=== PATIENT | female | born 1975 | race Caucasian/White ===

== ENCOUNTER 2020-02-28 16:00 | Outpatient (CLI) | payer BC, SELFPAY ==
[2020-02-28 16:14] LABS: Basophils Absolute Auto 0.1 K/mm3 (0.0-0.1); Basophils Percent Auto 0.8 % (0.2-1.2); Hematocrit 38.2 % (37.0-47.0); Hemoglobin 12.2 g/dL (12.0-15.0); Immature Granulocyte Absolute 0.03 K/mm3 (0.00-0.031); Immature Granulocyte Percent A 0.3 % (0-0.5); Lymphocytes Absolute Auto 2.55 K/mm3 (0.9-3.2); Lymphocytes Percent Auto 26.8 % (18.3-44.2); Mean Corpuscular HGB Conc 31.9 g/dl (32-36); Mean Corpuscular Volume 93.9 fl (80-100); Mean Platelet Volume 9.3 fl (7.4-10.4); Monocytes Absolute Auto 0.6 K/mm3 (0.1-0.6); Monocytes Percent Auto 6.5 % (2.6-8.5); Neutrophils Absolute Auto 6.2 K/mm3 (1.3-6.7); Neutrophils Percent Auto 65.6 % (45.5-73.1); Platelet Count Result 481 k/mm3 (150-375); Red Blood Count 4.07 M/mm3 (4.2-5.4); Red Cell Distribution Width 15.1 % (11.5-14.5); White Blood Count 9.5 K/mm3 (4.5-10.0)
[2020-02-28 16:49] LABS: Alanine Aminotransferase 23 U/L (4-35); Albumin Level 4.4 g/dL (3.5-5.1); Alkaline Phosphatase 140 U/L (38-126); Aspartate Amino Transferase 42 U/L (14-36); Bilirubin,Total 0.3 mg/dL (0.2-1.3); Blood Urea Nitrogen 5 mg/dL (7-17); CRP 1.5 mg/dL (<1.0); Calcium 9.4 mg/dL (8.4-10.2); Carbon Dioxide 32 mmol/L (22-30); Chloride 95 mmol/L (98-107); Estimated Glomerular Filt Rate > 60; Glucose 94 mg/dL (65-105); Potassium 2.9 mmol/L (3.4-5.0); Sodium 137 mmol/L (137-145)
[2020-02-28 17:05] LABS: Erythrocyte Sedimentation Rate 24 mm/hr (0-20)
== END 2020-02-28 16:01 | disposition home or self-care (01) ==
PROVIDERS: PCP Family Medicine; Referring Provider Family Medicine; Visit Provider Internal Medicine Hematology & Oncology
DX: R79.89 Other specified abnormal findings of blood chemistry (principal)
CPT/HCPCS: 36415; 80053; 85025; 85652; 86140

== ENCOUNTER 2020-06-26 14:19 | Outpatient (CLI) | payer BC, SELFPAY ==
[2020-06-26 14:32] LABS: Basophils Absolute Auto 0.1 K/mm3 (0.0-0.1); Basophils Percent Auto 0.6 % (0.2-1.2); Eosinophils Absolute Auto 0.2 K/mm3 (0-0.3); Eosinophils Percent Auto 2.8 % (0-4.4); Hematocrit 36.3 % (37.0-47.0); Hemoglobin 11.5 g/dL (12.0-15.0); Immature Granulocyte Absolute 0.04 K/mm3 (0.00-0.031); Immature Granulocyte Percent A 0.5 % (0-0.5); Lymphocytes Absolute Auto 2.07 K/mm3 (0.9-3.2); Lymphocytes Percent Auto 26.8 % (18.3-44.2); Mean Corpuscular HGB Conc 31.7 g/dl (32-36); Mean Corpuscular Hemoglobin 28.8 pg (26-34); Mean Platelet Volume 9.1 fl (7.4-10.4); Monocytes Absolute Auto 0.5 K/mm3 (0.1-0.6); Monocytes Percent Auto 6.1 % (2.6-8.5); Neutrophils Absolute Auto 4.9 K/mm3 (1.3-6.7); Neutrophils Percent Auto 63.2 % (45.5-73.1); Platelet Count Result 372 k/mm3 (150-375); Red Blood Count 3.99 M/mm3 (4.2-5.4); Red Cell Distribution Width 15.5 % (11.5-14.5); White Blood Count 7.7 K/mm3 (4.5-10.0)
[2020-06-26 14:36] LABS: Blood Urea Nitrogen 6 mg/dL (8-26); Carbon Dioxide 25 mmol/L (22-30); Chloride 95 mmol/L (98-109); Estimated Glomerular Filt Rate > 60; Glucose 129 mg/dL (70-105); Sodium 137 mmol/L (138-146)
[2020-06-26 14:38] LABS: Potassium 2.5 mmol/L (3.5-4.9)
== END 2020-06-26 14:20 | disposition home or self-care (01) ==
LOC: ANHLAB 14:21
PROVIDERS: PCP Family Medicine; Visit Provider Internal Medicine Hematology & Oncology
DX: R79.89 Other specified abnormal findings of blood chemistry (principal)
CPT/HCPCS: 36415; 80048; 85025

== ENCOUNTER → 2021-10-21 14:58 | Outpatient (CLI) | payer BC, SELFPAY ==
--- NOTE | ~2021-10-21 | MM_ITS ---
EXAMINATION: MM screening tessie BI w juanis HISTORY: Screening TECHNIQUE: Craniocaudal and mediolateral oblique 3-D tomosynthesis images were obtained and synthetic 2-D images were generated. CAD analysis was submitted and interpreted. COMPARISON: No prior mammogram is available for comparison at this institution. BREAST PARENCHYMAL COMPOSITION: The breasts are heterogeneously dense, which may obscure small masses . FINDINGS: There is no evidence of suspicious mass, calcification, or architectural distortion to sugg est malignancy in either breast. There has been no suspicious interval change. IMPRESSION: 1. No mammographic evidence of malignancy. 2. Recommend routine screening mammography in one year. BI-RADS Category 1: Negative Reviewed, dictated and finalized at location A. [employer]
== END ==
PROVIDERS: PCP Family Medicine; Visit Provider Obstetrics & Gynecology
DX: Z12.31 Encounter for screening mammogram for malignant neoplasm of breast (principal)
CPT/HCPCS: 77063; 77067

== ENCOUNTER 2024-05-14 16:21 | Emergency (ER) | payer BC, SELFPAY ==
[2024-05-14 16:39] VITALS: BP 155/85; PULSE 65; RESP 16; TEMP 36.3; O2SAT 100
--- NOTE | 2024-05-14 16:55 | ED.UPPEXIN ---
HPI - Extremity Injury (Upper) General Chief Complaint: Extremity Injury, Upper Stated Complaint: Elbow Pain Time Seen by Provider: 05/14/24 16:56 Source: patient Mode of arrival: ambulatory Limitations: no limitations History of Present Illness HPI narrative: 48-year-old female presented for complaint of bruising to the right elbow. She first noticed the bruising last night. She denies known injury. She denies pain, swelling, deformity, numbness tingling or weakness of the extremity. Related Data Home Medications Medication Instructions Recorded Confirmed Adult Low Dose Aspirin 81 tab-cap PO DAILY 05/14/24 05/14/24 atenolol 50 mg-chlorthalidone 25 1 tablet PO DAILY 05/14/24 05/14/24 mg tablet atorvastatin 40 mg tablet 40 mg PO DAILY 05/14/24 05/14/24 cyanocobalamin (vitamin B-12) 1,000 mcg PO DIRECTED 05/14/24 05/14/24 1,000 mcg tablet fluoxetine 40 mg capsule 40 mg PO DAILY 05/14/24 05/14/24 Allergies Allergy/AdvReac Type Severity Reaction Status Date / Time metronidazole [From Flagyl] AdvReac Intermediate Nausea Verified 05/14/24 16:49 Review of Systems Review of Systems: CONSTITUTIONAL: Denies body aches, fever, chills CARDIOVASCULAR: Denies chest pain, palpitations, or edema. RESPIRATORY: Denies cough or dyspnea. SKIN: Denies rash, itching, or wounds. MUSCULOSKELETAL: reports elbow pain NEUROLOGIC: Denies numbness, tingling, or weakness. All systems reviewed & are unremarkable except as noted in HPI and below PMFSH Past Medical History Medical History Depression High cholesterol History of hemorrhoids Hypertension Low blood potassium Low iron Family History Family History Mother Heart disease Hypertension Breast cancer Father Heart disease Hypertension Breast cancer Grandparent Colon cancer Social History Social History Smoking status: Current some day smoker (vapes, marijuana) Tobacco type: e-cigarettes/vaping Alcohol intake: current Alcohol use details: 3-4 nightly Substance use: current Substance use type: marijuana Living arrangements: with family Occupation/Education: unemployed Comments At time of signature, I have reviewed and agree with nursing past medical, surgical, social and family history unless otherwise noted. Please see nursing chart for further information. There is no relevant family history pertinent to the presenting complaint Exam Narrative: GENERAL: Well-appearing CHEST: Speaks in full sentences. No respiratory distress. HEART: Regular rate and rhythm. Normal and equal peripheral pulses. EXTREMITIES: RUE has normal strength and sensation, normal range of motion of right elbow, denies pain with movement. No swelling. Brown colored ecchymosis surrounding right elbow appears healing, no point tenderness. No open wounds or obvious deformity; alignment normal, pulse palpable and equal bilaterally, skin warm, dry, pink. Capillary refill less than 3 seconds. SKIN: Warm, dry NEURO: Alert and oriented x3. PSYCH: Normal mood and affect Course Course Emergency Course: Patient is aware of diagnosis, understands and agrees to treatment plan. Anticipatory guidance given. Patient agrees to follow-up as directed and is aware of reasons to seek care at the emergency department. Portions of this record may have been created with voice recognition software Level of Care: Express Care Visit Vital Signs Vital signs: Vital Signs Temperature 97.4 F L 05/14/24 16:39 Pulse Rate 65 05/14/24 16:39 Respiratory Rate 16 05/14/24 16:39 Blood Pressure 155/85 H 05/14/24 16:39 Pulse Oximetry 100 05/14/24 16:39 Oxygen Delivery Room Air 05/14/24 16:39 Temperature 97.4 F L 05/14/24 16:39 Pulse Rate 65 05/14/24 16:39 Respiratory Rate
== END 2024-05-14 17:05 | disposition home or self-care (01) ==
PROVIDERS: Emergency Provider Nurse Practitioner Family
DX: S50.01XA Contusion of right elbow, initial encounter (principal); X58.XXXA Exposure to other specified factors, initial encounter; E78.00 Pure hypercholesterolemia, unspecified; I10 Essential (primary) hypertension; F32.A Depression, unspecified
CPT/HCPCS: 99212; G0463

== ENCOUNTER 2024-12-13 01:42 | Day surgery (SDC) | payer BC, SELFPAY ==
[2024-12-04 11:25] VITALS: BMI 27.3
--- OUTSIDE RECORDS SUMMARY | 2024-12-13 01:45 | XMS_ITS | Data Portability ---
Author Organization [facility], [facility].C[facility]anna, [facility] Address [address] [place] [address] [place] [address] Assessment Encounter Date Assessment Date Assessment LastModified by Organization Details LastModified Time 03/02/2021 03/02/2021 Annual gynecological exam performed. Patient will come back in a year unless there are new symptoms. Not available 03/02/2021 16:13:54 03/28/2023 03/28/2023 Annual gynecological exam performed. Patient will come back in a year unless there are new symptoms. [email or web address] Not available 03/28/2023 15:31:23 09/03/2024 09/03/2024 Annual gynecological exam performed. Patient will come back in a year unless there are new symptoms. [email or web address] Not available 08/22/2024 09:50:34 Plan of Treatment Reminders Order Date Submit Date Provider Last Modified By Organization Details Last Modified Time Details Appointments None recorded . Lab None recorded . Referral None recorded . Procedures colonosc opy screenin g (PROC) 2023 024 [facility], [address], [address], [place], [address], 4 11:09:10 Surgeries None recorded . Imaging MAMMO, screenin g, digital, bilatera l 2022 023 [email or web address] [facility], [address], [place], [address], 3 16:14:00 MAMMO, screenin g, digital, bilatera l 2023 024 [facility], [address], [address] [address], [place], [address], 4 04:03:44 Medication Orders None recorded . Patient TargetsNo targets recorded. Patient InstructionsNo instructions recorded. Reason for Referral None Reported. Results Created Date Observation Date Name Description Value Unit Range Abnormal Flag Note LastModifiedBy Organization Detail LastModifiedTime 03/02/2003/02/2021 pap, IG Pap test SEE RESULT S BELOW CASE REPOR T: Cytol ogy Gynec ologi neel Repor t Case: [id number] Autho mellisa salter Provi troy: Soraida Yancey MD Colle cted: 03/02 1727 Order ing Locat ion: [place] [facility] Recei julio: 03/03 1020 First Scree n: Nael Johnson, CT Speci men: Scree josep Pap - Image d, Cervi x STATE MENT OF ADEQU ACY: Satis facto ry for evalu ation Trans forma tion zone compo nent prese nt FINAL DIAGN OSIS: Negat malena for Intra epith elial Lesio n or Darrion marroquin (NIL) Shift in aníbal sugge stive of bacte rial vagin osis Elect anuja sharma jessica d by Nael Johnson, CT on 2020 at 5:07 PM ----- ----- ----- ----- ----- ----- ----- ----- ----- ----- ----- ----- ----- ----- ----- ----- ----- ---- HPV RESUL TS: HPV mRNA E6/E7 : No HPV mRNA Detec fer NOTE: This high risk HPV mRNA assay detec ts fourt een high- risk HPV types (16, 18, 31, 33, 35, 39, 45, 51, 52, 56, 58, 59, 66, 68) witho ut diffe renti ation . CHART ABLE COMME NT: Note: This speci men was revie wed by a Cytot echno logis t and/o r Patho logis t (as indic ated in this repor t) after evalu ation using the Thinp rep Imagi ng Syste m. CLINI NEEL INFOR MATIO N: Menst rual Statu s: LMP (if appli cable ): Clini neel Histo ry/Pr eviou s Pap: Type of Neopl arnie (if appli cable ): Other Histo ry: Hormo johnnie (if appli cable ): PAP EDUCA NEEL L NOTE: The Pap Test is a scree josep test with an inher ent false negat malena rate. Liqui d-bas e sampl ing may decre ase, but will not elimi george, false negat malena resul ts. A negat malena resul t does not precl ude the prese nce and/o r devel opmen t of disea se, since the prese nce of abnor mal cells in the sampl e depen ds on the locat ion of the lesio n and sampl ing techn ique. Rosetta nued regul ar scree josep is the best metho d of cance r preve ntion . If repor fer cytol ogic findi ng do not corre late with physi neel and/o r histo rical findi ngs, furth er inves tigat ion is recom chelsie d, as clini maritza alanis nted. Not Available [facility] (Lab) [address] [facility], [place], [address], 03/03/2021 19:35:31 03/28/20 23 03/28/2023 IMAGE GUIDE D PAP AND HPV REGAR DLESS image guided Pap, HPV regardless of Pap result SEE RESULT S BELOW CASE REPOR T: Cytol ogy Gynec ologi neel Repor t Case: [id number] Autho mellisa salter Provi troy: Anai Murphy, COORDINATOR OF PLACEMENT Colle cted: 03/28 1612 Order ing Locat ion: [place] [facility] [place] Recei julio: 03/29 0131 First Scree n: Kotz, Taylor h, CT Speci men: Scree josep Pap - Image d, Cervi x STATE MENT OF ADEQU ACY: Satis facto ry for evalu ation Trans forma tion zone compo nent prese nt FINAL DIAGN OSIS: Negat malena for Intra epith elial Lesio n or Darrion marroquin (NIL) . Shift in aníbal sugge stive of bacte rial vagin osis. Elect anuja sharma jessica d by Taylor Jiménez, CT on 2022 at 12:23 PM ----- ----- ----- ----- ----- ----- ----- ----- ----- ----- ----- ----- ----- ----- ----- ----- ----- ---- HPV RESUL TS: HPV mRNA E6/E7 : No HPV mRNA Detec fer NOTE: This high risk HPV mRNA assay detec ts fourt een high- risk HPV types (16, 18, 31, 33, 35, 39, 45, 51, 52, 56, 58, 59, 66, 68) witho ut diffe renti ation . COMME NT: This speci men was revie wed by a Cytot echno logis t and/o r Patho logis t (as indic ated in this repor t) after evalu ation using the Thinp rep Imagi ng Syste m. CLINI NEEL INFOR MATIO N: Menst rual Statu s: LMP (if appli cable ): Clini neel Histo ry/Pr eviou s Pap: Type of Neopl arnie (if appli cable ): Signi fican t Clini neel Findi ngs: Other Histo ry: Hormo johnnie (if appli cable ): PAP EDUCA NEEL L NOTE: The Pap Test is a scree josep test with an inher ent false negat malena rate. Liqui d-bas ed sampl ing may decre ase, but will not elimi george, false negat malena resul ts. A negat malena resul t does not precl ude the prese nce and/o r devel opmen t of disea se, since the prese nce of abnor mal cells in the sampl e depen ds on the locat ion of the lesio n and sampl ing techn ique. Rosetta nued regul ar scree josep is the best metho d of cance r preve ntion . If repor fer cytol ogic findi ng do not corre late with physi neel and/o r histo rical findi ngs, furth er inves tigat ion is recom chelsie d, as clini maritza warra nted. Not Available [facility] (Lab) [address], [place], [address], 03/29/2023 13:36:42 10/21/20 21 10/21/2021 MAMMO , scree josep, bilat eral No observ ation record ed. [facility] [address], [place], [address], 10/22/2021 09:43:55 Result Notes None recorded. 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 1 16:15:12 Speciali zed medical examinat ion Completed 201403/02/2021 Gynecolo gical Examinat ion;Everett rded Elsewher e: No Locat ion: [facility] S ource: [employer] Man veronica: N Practi ce ID: [id number] Dawson lable Time: 12:15:00 PM Caryl [facility] 1 16:15:20 Screenin g for malignan t neoplasm of cervix Completed 201403/02/2021 Pap Smear;Pr actice ID: 0001 [facility] 16:15:15 Problem Notes None recorded. Procedures Surgical History Date Name Laterality Status Provider Name and Address Organization Details Recorded Time 03/28/20 23 Date of Last Pap Smear completed [facility] 08/22/2024 09:52:33 10/21/20 21 Date of Last Mammogram completed [facility] 08/22/2024 09:53:58 04/14/20 20 hemorrhoidectomy completed [facility] 03/02/2021 16:20:18 Imaging Results Imaging Date Name Status LastModified by Organiz ation Details LastModified Time 10/21/2021 MAMMO, screening, bilateral completed [facility] [address], [place], [address], 10/22/2021 09:43:55 Procedure Notes None recorded. Medical Equipment None Reported. Allergies No known drug allergies Medications Name Sig Start Date Stop Date Status Note LastModified by Organization Details LastModified Time azithromy jorge luis 250 mg tablet take 4 tablet by oral route 08/22 completed Prescrib ed Elsewher e: No Locat ion: Natali tim [facility] odify By: [email or web address] Encounte r DateTime : 08/18/20 17 02:00:00 PM Not Available Not Available Not Available atenolol 25 mg tablet take 1 tablet by oral route every day active Prescrib ed Elsewher e: Yes Loca tion: Natali tim [facility] odify By: lewis Encounte r DateTime : 12/03/19 15 12:15:00 PM Not Available Not Available Not Available ranitidin e 75 mg tablet take 1 tablet by oral route 2 times every day with a glass of water 03/02 completed Prescrib ed Elsewher e: Yes Loca tion: Natali tim [facility] odify By: lewis Encounte r DateTime : 12/03/19 15 12:15:00 PM Not Available Not Available Not Available Flagyl 500 mg tablet take 1 tablet by oral route twice daily for 7 days. 08/18 completed Prescrib ed Elsewher e: No Locat ion: Natali tim [facility] odify By: [email or web address] Blackburn ter DateTime : 12/09/19 15 11:43:00 AM Not Available Not Available Not Available Aspirin Childrens 81 mg chewable tablet chew 1 tablet by oral route every day 03/02 completed Prescrib ed Elsewher e: Yes Loca tion: Natali tim [facility] odify By: lewis Blackburnte r DateTime : 12/03/19 15 12:15:00 PM Not Available Not Available Not Available ceftriaxo ne 500 mg solution for injection inject (250MG) by intramus cular route as a single dose 03/02 completed Prescrib ed Elsewher e: No Locat ion: Natali tim [facility] odify By: randa irwin DateTime : 08/23/20 17 08:36:12 AM Not Available Not Available Not Available Prozac 10 mg capsule take 2 capsule by oral route every day active Prescrib ed Elsewher e: Yes [facility] By: lewis alston DateTime : 12/03/19 15 12:15:00 PM Not Available Not Available Not Available Vitamin D2 1,250 mcg (50,000 unit) capsule take 1 capsule by oral route every week 03/02 completed Prescrib ed Elsewher e: No Locat ion: [facility] odify By: florentin singleton DateTime : 08/26/20 04:10:26 PM Not Available Not Available Not Available azithromy jorge luis 500 mg tablet take 2 tablet by oral route once 03/02 completed Prescrib ed Elsewher e: No Locat ion: [facility] odify By: randa irwin DateTime : 08/22/20 04:54:58 PM Not Available Not Available Not Available vitamin B complex active Not Available Not Available Not Available diazepam 03/28 completed Not Available Not Available Not Available Vitamin D active Not Available Not Karen ilable Not Available Wellbutri n active Not Available Not Available Not Available aspirin 81 mg capsule Take 1 capsule every day by oral route. active Not Available Not Available No t Available Vitals Date Recorded Body height Body mass index (BMI) Body weight Systolic blood pressure Diastolic blood pressure Provider Name and Address Organization Details Last Updated DateTime 03/02/2021 154.94 cm 27.8 kg/m2 74712.08 g 110 mm[Hg] 71 mm[Hg] Caryl Bautista [facility] 1 16:28:25 Date Recorded Body height Body mass index (BMI) Body weight Systolic blood pressure Diastolic blood pressure Provider Name and Address Organization Details Last Updated DateTime 03/28/2023 154.94 cm 26.5 kg/m2 02128.37 g 121 mm[Hg] 75 mm[Hg] Emily Lange [facility] 3 15:31:43 Date Recorded Body height Body mass index (BMI) Body weight Systolic blood pressure Diastolic blood pressure Provider Name and Address Organization Details Last Updated DateTime 09/03/2024 154.94 cm 9.1 kg/m2 12689.43 g 130 mm[Hg] 76 mm[Hg] Silva Blanco [facility] 15:14:35 Social History Question Answer Notes LastModified by Organizat ion Details LastModified Time Tobacco Smoking Status Never Smoker Caryl Bautista kiko [facility] 03/02/2021 16:18:17 What Is Your Level Of Alcohol Consumption? Moderate Information not available 03/02/2021 Are You Blind Or Do You Have Difficulty Seeing? No Information not available 03/28/2023 Are You Deaf Or Do You Have Serious Difficulty Hearing? No Information not available 03/28/2023 Which Illicit Or Recreational Drugs Have You Used? Marijuana Information not available 03/02/2021 Do You Use Any Illicit Or Recreational Drugs? Yes Information not available 03/02/2021 Sex: Unknown Functional Status Question Answer Note LastModified by Organizat ion Details LastModified Time Do you have difficulty walking or climbing stairs? No Information not available 03/28/2023 Are you able to walk? YESWOREST Information not available 03/28/2023 Are you able to care for yourself? Yes Information not available 03/28/2023 Do you have difficulty dressing or bathing? No Information not available 03/28/2023 Mental Status None recorded. Family History Relationship Description Onset Age of this Age Resolved Age Notes LastModified by Organization Details LastModified Time Mother Hypertensive disorder Not available 2020 16:16:43 Father Malignant tumor of breast Not available 2020 16:16:59 Father Hypertensive disorder Not available 2020 16:17:07 Father Malignant tumor of lung Not available 2020 16:17:20 Maternal Grandfather Malignant tumor of colon Not available 2020 16:17:38 Medical History Condition Response Allergies (Food, seasonal, environmental ) N Other N Drug/Latex Allergies/Reactions N Blood Transfusion N Breast Cancer N Dermatologic Disorders N Lung Disease N Defects or Inherited Disease N Breast Problem N Gestational Diabetes N Hematologic disorders N Anesthesia Complications N History of STI N Deep Vein Thrombosis N Polycystic ovary syndrome N Anxiety Disorder N Autoimmune disease N Arthritis N Polyps N Infertility N Acid Reflux (GERD) N History of abnormal pap N Cancer N Varicosities N Stroke N Neurologic/Epilepsy N Endometriosis N High Cholesterol N Fibromyalgia N Headaches N Kidney Disease N Heart Problems N Thyroid Problems N Kidney or Bladder Problems N GI Problems N Eating Disorder N Anemia N Art (IVF or FET) N Psychiatric Illness N Ovarian Cancer N Diabetes N Pulmonary (TB, Asthma) N Hepatitis/Liver Disease N No Past Medical History N Eczema N Urinary Tract Infection N Abuse/Domestic Violence N Asthma N Trauma/Violence N Depression/ depression Y Heart Disease N Pre-Eclampsia N Hypertension Y Osteoporosis N Thrombophilias N Gynecological History Statement/Question Response Abnormal Pap N Flow Light Date of Last Mammogram 10/21/2021 Date of LMP 08/24/2024 Was last menstrual period normal Y STIs/STDs Y HPV Vaccine N Duration of Flow (days) 4 12 Current Control Method Partner Vas ectomy Are cycles usually normal Y Date of Last Colonoscopy Sexually Active? Y Menses Monthly Y Age of first menstrual cycle 13 Date of Last Pap Smear 03/28/2023 Sexual Problems? N LMP Definite Obstetrics History GPAL:G 2 P 0 0 2 0 Type Value Induced 2 Living 0 Total 2 Past Encounters Encounter ID Performer Location Encounter Start Date Encounter Closed Date Diagnosis/Indication Diagnosis SNOMED-CT Code Diagnosis ICD10 Code Diagnosis Note [id number] Kade Yancey MD [facility] [address] [address] 03/02/2021 16:02:34 03/02/2021 17:09:39 Gynecologic examination 21858036 Z01.419 This patient is here for her annual exam. A thorough history was taken. A physical exam was performed. Age appropriat e routine health screening was ordered, performed, and discussed. Recommende d testing was ordered. She was asked to follow up in one year. She will be informed of any test results. Mammogram - [ ordered] Cholestero l - [ done ] Pap - today [id number] ZAYRA Youngblood [facility] [address] [address] 03/28/2023 15:20:17 03/28/2023 16:47:07 Screening for malignant neoplasm of breast 779880546 Z12.39 Gynecologi c examination 74018048 Z01.419 Suggested Calcium with Vitamin D 1200-1500m g daily. Patient advised to get an annual flu shot in the fall and she could obtain at [facility] or [facility]. Also to obtain TDap vaccinatio n if you have not had one in the last 10 years. Recommend yearly mammograms . Encouraged monthly self breast exams. Encourage safe sexual practices, to use condoms and limit partners if not already in a monogamous relationsh ip. Engage in daily exercise of low impact aerobic exercise 45-60 minutes 4-5 times weekly. Avoid tobacco and illicit drugs as well as using moderation with alcohol intake less than 1-2 8 oz beverages daily. This lifestyle behavior pattern will lead to less health conditions and longer life span. If BMI greater than 25 weight watchers or dietary consult advised. All questions have been answered. Patient appears to understand informatio n, but if you have any questions please call or respond to this email. WWEBC - partner with vasectomyn o hx of abnormal papspap done todaySTI testing declinedfa ther with BC at age 72, mother with BC at age 80. Genetic testing discussedm ammogram order givengrand father with colon CA, unsure age. Colon CA screening discussed and recommende d, declinedUT D with PCPRTC in 1 year or sooner if needed [id number] [facility] [address] [address] 09/03/2024 15:08:36 09/03/2024 16:12:51 Screening mammography [id number] Z12.31 Patient to schedule annual mammogram - order given. Gynecologi c examination 74228646 Z01.419 Annual gynecologi neel exam performed. Patient will come back in a year unless there are new symptoms. Suggest Calcium with Vitamin D if not eating in diet. Patient advised to get annual flu shot. Recommend yearly physicals and perform monthly breast exams. Genetic testing is available for patients with family history of cancer. Engage in safe sexual practices, use condoms. Encouraged to have daily exercise. Avoid tobacco and illicit drugs, moderation of alcohol. If BMI greater than 25 dietary consult advised. If you have any questions please call or email. mammogram- DUE - order given colon cancer screening - DUE - GI referral to [facility] (family hx of colon cancer - Paternal GF) DEXA scan- n/a Pap smear- UTD (2022 - WNL, will repeat in 2025 per ASCCP guidelines ) laboratory evaluation - PCP STI testing - declined Screening colonoscopy 44 1327503 Z12.11 Health Concerns Section Related Observation LastModified by Organization Detai ls LastModified Time None Recorded Concern Status LastModified by Organization Details LastModified Time None Recorded Advance Directives Directive None Recorded Payers Encounter Date Sequence Insurance Name Policy Number Policy Gaitan Covered Member ID Gaitan Member ID Guarantor Name 03/02/2021 1 [place] [id number] Omega Babin [id number] Diamond Babin 03/28/2023 1 [place] [id number] Omega Maryjanetim [id number] Diamond Babin 09/03/2024 1 [place] [id number] Omega Maryjanetim [id number] Diamond Babin Notes Date Note Type Note Provider Name and Address Organization Details Recorded Time 03/02/2021 text/html Annual GYNReport ed bypatient.History: no gynecologic complaints Menstrual cycle:Normal menses Urinary symptoms:No hematuria; No incontinence Vulva:No genital lesion Vagina:Normal vaginal discharge Breast:No breast pain; No breast lump; No nipple discharge Current Contraception:Sati sfied with current contraception; Partner had vasectomy Sexual complaints:No sexual complaints; No pain during intercourse; Normal libido Menopausal Symptoms:No menopausal symptoms; Normal vaginal lubrication Psychological symptoms:No depression; No anxiety Preventive measures:Encourage self breast examination; Encourage regular exercise Kade Yancey MD [address], [place], [address], [place] [facility] 03/02/2021 17:02:02 03/28/2023 text/html Annual GYNReport ed bypatient.Menstrua l cycle:Normal menses Urinary symptoms:No hematuria; No incontinence Vulva:No genital lesion Vagina:Normal vaginal discharge Breast:No breast pain; No breast lump; No nipple discharge Current Contraception:Sati sfied with current contraception; Partner had vasectomy Sexual complaints:No sexual complaints; No pain during intercourse; Normal libido Menopausal Symptoms:No menopausal symptoms; Normal vaginal lubrication Psychological symptoms:No depression; No anxiety; No PMDD Preventive measures:Encourage self breast examination; Encourage regular exercise; Encourage no tobacco use; Encourage regular mammograms starting age 40 ZAYRA Youngblood [address], [place], [address], [place] [facility] 03/28/2023 16:34:21 09/03/2024 text/html Annual GYNReport ed bypatient.History: no gynecologic complaints Menstrual cycle:Irregular cycle intervals(q1-2 months);Perimenopa usal Urinary symptoms:No hematuria; No incontinence Vulva:No genital lesion Vagina:Normal vaginal discharge Breast:No breast pain; No breast lump; No nipple discharge Current Contraception:Part ner had vasectomy Sexual complaints:No sexual complaints; No pain during intercourse; Normal libido Menopausal Symptoms:No menopausal symptoms; Normal vaginal lubrication Psychological symptoms:No depression; No anxiety; No PMDD Preventive measures:Encourage self breast examination; Encourage regular exercise; Encourage no tobacco use; Encourage regular mammograms starting age 40; Needs to schedule mammogram; Needs to schedule colonoscopy Patient presents for annual well woman exam. Patient denies concerns today. Patient reports irregular cycles with light flow. Pt reports mild hot flashes intermittently, not bothersome. Silva hoover, [facility] 09/03/2024 16:47:00 OBGyn Episode Ob Episode Information Episode Created Date Number of Fetuses Patient Bloodtype Patient rh Status Prepregnancy Weight lbs Domestic Partner Domestic Partner Phone Father Name Planning Engineer Status 03/02/20 21 1 CLOSED Fetus Data First Name Last Name Admitted to NICU Weight (g) Sex Living Outcome Pediatric Complications Fetus ID Race Codes Race Delivery Type , Induced [id number] Manpreet Calculation Initial Manpreet Date Initial Exam Date Initial Exam Provider Initial Ultrasound Date Last Menstrual Period Date Ultra Sound Weeks Gestation 0 Eighteen To Twenty Week Manpreet Update Ultra Sound Date Fundal Height At Umbil Quickening Date Ultra Sound Latest Weeks Gestation Final Manpreet Confirmed By Final Manpreet Confirmed Date Final Manpreet Date Ultra Sound Latest Days Gestation 0 0 Menstrual History Last Menstrual Date Menses Monthly On Bcp Conception Prior Menses Frequency Hcg Plus Date Menarche Onset Age Delivery Information Delivery Date Delivery Type Labor Anesthesia Weeks Gestation Incision Type Labor Labor Length Hrs Delivered By Post Complications Tubal Sterilization Discharge Date Comments Discharge Information Feeding Method Contraceptive Method Maternal HG B and HCT Levels Ob Episode Information Episode Created Date Number of Fetuses Patient Bloodtype Patient rh Status Prepregnancy Weight lbs Domestic Partner Domestic Partner Phone Father Name Planning Engineer Status 03/02/20 21 1 CLOSED Fetus Data First Name Last Name Admitted to NICU Weight (g) Sex Living Outcome Pediatric Complications Fetus ID Race Codes Race Delivery Type , Induced [id number] Manpreet Calculation Initial Manpreet Date Initial Exam Date Initial Exam Provider Initial Ultrasound Date Last Menstrual Period Date Ultra Sound Weeks Gestation 0 Eighteen To Twenty Week Manpreet Update Ultra Sound Date Fundal Height At Umbil Quickening Date Ultra Sound Latest Weeks Gestation Final Manpreet Confirmed By Final Manpreet Confirmed Date Final Manpreet Date Ultra Sound Latest Days Gestation 0 0 Menstrual History Last Menstrual Date Menses Monthly On Bcp Conception Prior Menses Frequency Hcg Plus Date Menarche Onset Age Delivery Information Delivery Date Delivery Type Labor Anesthesia Weeks Gestation Incision Type Labor Labor Length Hrs Delivered By Post Complications Tubal Sterilization Discharge Date Comments Discharge Information Feeding Method Contraceptive Method Maternal HG B and HCT Levels
--- OUTSIDE RECORDS SUMMARY | 2024-12-13 01:45 | XMS_ITS | Data Portability ---
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 Plan of Treatment Reminders Order Date Submit Date Provider Last Modified By Organization Details Last Modified Time Details Appointments None recorded. Lab CBC w/ auto diff 2022 023 [place] [facility], [address], [place], [address], 3 17:10:09 CMP, serum or plasma 2022 023 [place] [facility], [address], [place], [address], 3 17:10:08 TSH + free T4, serum 2022 023 [place] [facility], [address], [address], [place], [address], 3 12:12:30 lipid panel, serum 2022 023 [place] [facility], [address], [address], [place], [address], 3 17:10:08 HbA1c (hemoglobi n A1c), blood 2022 023 [place] [facility], [address], [address], [place], [address], 3 12:12:32 vitamin D, 25-hydroxy , total, serum 2022 023 KISHOR Guerra, [address], [address], [place], [address], 3 12:12:33 iron + total iron-james ng capacity (TIBC), serum 2022 023 [facility] Guerra, [address], [address], [place], [address], 3 12:12:31 vitamin B12 + folate, serum or blood 2022 023 KISH[facility] Guerra, [address], [address], [place], [address], 3 12:12:30 lipid panel, serum 2022 023 KISH[facility] Guerra, [address], [address], [place], [address], 3 16:09:29 CBC w/ auto diff 2022 023 K[facility] Guerra, [address], [address], [place], [address], 3 16:19:21 ferritin, serum or plasma 2022 023 KISHOR Guerra, [address], [address], [place], [address], 3 16:20:43 vitamin B12 + folate, serum or blood 2022 023 KISHOR Guerra, [address], [address], [place], [address], 3 16:11:15 CMP, serum or plasma 2022 023 K[facility] Guerra [address], [address], [place], [address], 3 16:11:15 CMP, serum or plasma 2022 023 [facility], [address], [address], [place], [address], 3 15:29:35 CBC w/ auto diff 2022 023 [facility], [address], [address], [place], [address], 3 15:29:33 lipid panel, serum 2022 023 [facility], [address], [address], [place], [address], 3 15:29:35 vitamin D, 25-hydroxy , total, serum 2022 023 [facility], [address], [address], [place], [address], 3 15:29:33 vitamin B12 + folate, serum or blood 2022 023 [facility], [address], [address], [place], [address], 3 15:37:51 iron + total iron-james ng capacity (TIBC), serum 2022 023 [facility], [address], [address], [place], [address], 3 15:29:34 ferritin, serum or plasma 2022 023 [facility], [address], [address], [place], [address], 3 15:29:33 CMP, serum or plasma 2023 024 [facility], [address], [address], [place], [address], 4 08:28:48 CBC w/ auto diff 2023 024 [facility] [address], [address], [place], [address], 4 08:28:51 lipid panel, serum 2023 024 [place] [facility], [address], [address], [place], [address], 4 08:28:47 TSH + free T4, serum 2023 024 [place] [facility], [address], [address], [place], [address], 4 08:28:47 HbA1c (hemoglobi n A1c), blood 2023 024 [facility], [address], [address], [place], [address], 4 08:28:50 vitamin D, 25-hydroxy , total, serum 2023 024 KISHOR Mccord, [address], [address], [place], [address], 4 08:28:51 vitamin B12 + folate, serum or blood 2023 024 K[facility] Mccord, [address], [address], [place], [address], 4 08:28:49 iron + total iron-james ng capacity (TIBC), serum 2023 024 KISH[facility] Mccord, [address], [address], [place], [address], 4 08:28:49 ferritin, serum or plasma 2023 024 [place] [facility], [address], [address], [place], [address], 4 08:28:50 Referral gastroente rologist referral - DO NOT REFER TO [facility] 2022 023 [place], [address], [address], [place], [address], 4 11:21:12 dermatolog ist referral 2023 024 [email or web address] Zeny Haro MD (Dermatology) , [address], [address], [place], [address], 4 08:06:03 gastroente rologist referral 2023 024 [facility], [address], [place], [address], 4 10:28:02 Procedures None recorded. Surgeries None recorded. Imaging MAMMO, screening, bilateral 2022 023 [facility], [address], [address], [place], [address], 3 16:28:18 Medication Orders fluoxetine 40 mg capsule 2022 023 [facility] #[id number], [address], [place], [address], 3 16:06:13 atenolol 50 mg-chlorth alidone 25 mg tablet 2022 023 [facility] #[id number], [address], [place], [address], 3 16:06:13 hydroxyzin e HCl 25 mg tablet 2022 023 [facility] #[id number], [address], [place], [address], 3 15:27:09 bupropion HCl XL 150 mg 24 hr tablet, extended release 2023 024 [email or web address] [facility] #[id number], [address], [place], [address], 4 09:16:43 metronidaz ole 1 % topical gel 2023 024 [facility] #[id number], [address], [place], [address], 4 14:06:22 Patient TargetsNo targets recorded. 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 for malignant neoplasm of colon DO NOT REFER TO [facility] Referring Physician: Evelyn Jha [facility], Encounter Date: 11/02/2023 Electromyographic Technician Referral for R osacea Referring Physician: Evelyn Jha [facility], Encounter Date: 03/15/2024 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 Referral for Screening for malignant neoplasm of colon Referring Physician: Evelyn Jha [facility] [employer] [facility] [employer] [facility], Encounter Date: 03/15/2024 Results Created Date Observation Date Name Description Value Unit Range Abnormal Flag Note LastModifiedBy Organization Detail LastModifiedTime 02/08/20 23 02/08/2023 TSH+F REE T4 TSH 1.820 uIU/m L 0.450- 4.500 Not Available [facility] ([facility]) [address], [place], [address], 02/08/2023 12:12:29 02/08/2002/08/2023 TSH+F REE T4 T4,free(dire ct) 0.94 NG/dL 0.82-1 .77 Not Available [facility] ([facility]) [address] [place], [address], 02/08/2023 12:12:29 02/08/2002/08/2023 VITAM IN B12 AND FOLAT E vitamin B12 181 pg/mL 232-12 45 below low normal Not Available [facility] ([facility]) [address] [place], [address], 02/08/2023 12:12:30 02/08/2002/08/2023 VITAM IN B12 AND FOLAT E folate (folic acid), serum 3.9 NG/mL >3.0 A serum folat e bubba ntrat ion of less than 3.1 ng/mL is consi dered to repre sent clini neel defic iency . Not Available [facility] ([facility]) [address] [facility], [place], [address], 02/08/2023 12:12:30 02/08/2002/08/2023 IRON AND TIBC iron bind.cap.(TI BC) 517 ug/dL 250-45 0 above high normal Not Available [facility] ([facility]) [address] [place], [address], 02/08/2023 12:12:31 02/08/20 23 02/08/2023 IRON AND TIBC UIBC 497 ug/dL 131-42 5 above high normal Not Available [facility] ([facility]) [address] [place], [address], 02/08/2023 12:12:31 02/08/20 23 02/08/2023 IRON AND TIBC iron 20 ug/dL 27-159 below low normal Not Available [facility] ([facility]) [address] [place], [address], 02/08/2023 12:12:31 02/08/20 23 02/08/2023 IRON AND TIBC iron saturation 4 % 15-55 alert low Not Available [facility] ([facility]) [address] [facility], [place], [address], 02/08/2023 12:12:31 02/08/20 23 02/08/2023 HEMOG LOBIN A1C hemoglobin A1C 5.6 % 4.8-5. 6 Predi abete s: 5.7 - 6.4 Diabe maia: >6.4 Glyce sherley contr ol for adult s with diabe maia: <7.0 Not Available [facility] ([facility]) [address] [facility], [place], [address], 02/08/2023 12:12:32 02/08/20 23 02/08/2023 VITAM IN D, 25-HY DROXY vitamin D, 25-hydroxy 19.4 NG/mL 30.0-1 00.0 below low normal Vitam in D defic iency has been defin ed by the Insti tute of Medic ine and an Endoc rine Socie ty pract ice guide line as a level of serum 25-OH vitam in D less than 20 ng/mL (1,2) . The Endoc rine Socie ty went on to furth er defin e vitam in D insuf ficie ncy as a level betwe en 21 and 29 ng/mL (2). 1. IOM (Inst itute of Medic ine). 2009. Dieta ry refer ence intak es for calci um and D. Rinku ramirez [place]: The Natio nal [facility] Press . 2. Hadley noyola MF, Denita ey [place], Vashti off-F errar i PERLA, et al. Evalu ation , treat ment, and preve ntion of vitam in D defic iency : an Endoc rine Socie ty clini neel pract ice guide line. JCEM. 2010; 96(7) :1911 -30. Not Available [facility] ([facility]) [address] [facility], [place], [address], 02/08/2023 12:12:32 02/08/20 23 02/08/2023 LIPID PANEL WITH LDL/H DL RATIO cholesterol, total 286.1 mg/dL 140.0- 200.0 above high normal Not Available [facility] [address] [place] [address], [address], 02/08/2023 17:10:08 02/08/20 23 02/08/2023 LIPID PANEL WITH LDL/H DL RATIO triglyceride s 175 mg/dL <=150 above high normal Not Available [facility] [address] [place], [address], 02/08/2023 17:10:08 02/08/20 23 02/08/2023 LIPID PANEL WITH LDL/H DL RATIO HDL cholesterol 53.1 mg/dL 40.0-[address] [facility] [address] [place] [address], [address], 02/08/2023 17:10:08 02/08/20 23 02/08/2023 LIPID PANEL WITH LDL/H DL RATIO VLDL cholesterol neel 35.00 mg/dL 5.00-[address] [facility] [address] [place] [address], [address], 02/08/2023 17:10:08 02/08/20 23 02/08/2023 LIPID PANEL WITH LDL/H DL RATIO LDL chol calc (nih) 200.1 Not Available [facility] [address] [place], [address], 02/08/2023 17:10:08 02/08/20 23 02/08/2023 LIPID PANEL WITH LDL/H DL RATIO LDL/HDL ratio 3.8 Not Available [facility] [address] [place], [address], 02/08/2023 17:10:08 02/08/20 23 02/08/2023 COMP. METAB OLIC PANEL (14) glucose 91 mg/dL 65-99 ANION GP 19.0 mmol/ L N OSMOL 273.0 mOsM/ L L REFER ENCE RANGE : 275.0 -301. [address] [facility] [address] [place] [address], [address], 02/08/2023 17:10:08 02/08/20 23 02/08/2023 COMP. METAB OLIC PANEL (14) BUN 6 mg/dL 8-26 below low normal Not Available [facility] [address] [place] [address], [address], 02/08/2023 17:10:08 02/08/20 23 02/08/2023 COMP. METAB OLIC PANEL (14) creatinine 0.45 mg/dL 0.50-1 .40 below low normal Not Available [facility] [address] [place] [address], [address], 02/08/2023 17:10:08 02/08/20 23 02/08/2023 COMP. METAB OLIC PANEL (14) eGFR 121 mL/mi n/1.7 3 >=[address] [facility] [address] [place] [address], [address], 02/08/2023 17:10:08 02/08/20 23 02/08/2023 COMP. METAB OLIC PANEL (14) BUN/creatini ne ratio 13.8 Not Available [facility] [address] [place] [address], [address], 02/08/2023 17:10:08 02/08/20 23 02/08/2023 COMP. METAB OLIC PANEL (14) sodium 138.0 mmol/ L 136.0- 144.[address] [facility] [address] [place] [address], [address], 02/08/2023 17:10:08 02/08/20 23 02/08/2023 COMP. METAB OLIC PANEL (14) potassium 3.2 mmol/ L 3.5-5. 3 below low normal Not Available [facility] [address] [place] [address], [place], [address], 02/08/2023 17:10:08 02/08/20 23 02/08/2023 COMP. METAB OLIC PANEL (14) chloride 95 mmol/ l 101-11 1 below low normal Not Available [facility] [address] [place], [address], 02/08/2023 17:10:08 02/08/20 23 02/08/2023 COMP. METAB OLIC PANEL (14) carbon dioxide, total 27.8 mmol/ L 21.0-[address] [facility] [address] [place], [address], 02/08/2023 17:10:08 02/08/20 23 02/08/2023 COMP. METAB OLIC PANEL (14) calcium 9.4 mg/dL 8.2-[address] [facility] [address] [place], [address], 02/08/2023 17:10:08 02/08/20 23 02/08/2023 COMP. METAB OLIC PANEL (14) protein, total 7.2 g/dL 6.7-8. [address] [facility] [address] [place], [address], 02/08/2023 17:10:08 02/08/20 23 02/08/2023 COMP. METAB OLIC PANEL (14) albumin 4.3 g/dL 3.5-5. [address] [facility] [address] [place], [address], 02/08/2023 17:10:08 02/08/20 23 02/08/2023 COMP. METAB OLIC PANEL (14) globulin, total 2.9 g/dL 1.5-4. [address] [facility] [address] [place], [address], 02/08/2023 17:10:08 02/08/20 23 02/08/2023 COMP. METAB OLIC PANEL (14) A/G ratio 1.5 Not Available [facility] [address] [place], [address], 02/08/2023 17:10:08 02/08/20 23 02/08/2023 COMP. METAB OLIC PANEL (14) bilirubin, total 0.2 mg/dL 0.0-1. [address] [facility] [address] [place] [address], [address], 02/08/2023 17:10:08 02/08/20 23 02/08/2023 COMP. METAB OLIC PANEL (14) alkaline phosphatase 123.9 IU/L 42.0-1 21.0 above high normal Not Available [facility] [address] [place] [address], [address], 02/08/2023 17:10:08 02/08/20 23 02/08/2023 COMP. METAB OLIC PANEL (14) AST (SGOT) 19.1 U/L 10.0-[address] [facility] [address] [place] [address], [address], 02/08/2023 17:10:08 02/08/20 23 02/08/2023 COMP. METAB OLIC PANEL (14) ALT (SGPT) 17.8 U/L 10.0-[address] [facility] [address] [place] [address], [address], 02/08/2023 17:10:08 02/08/20 23 02/08/2023 CBC WITH DIFFE RENTI AL/PL ATELE T WBC 9.1 K/uL 3.4-[address] [facility] [address] [place] [address], [address], 02/08/2023 17:10:09 02/08/20 23 02/08/2023 CBC WITH DIFFE RENTI AL/PL ATELE T RBC 3.7 M/uL 4.2-5. 4 below low normal Not Available [facility] [address] [place], [address], 02/08/2023 17:10:09 02/08/20 23 02/08/2023 CBC WITH DIFFE RENTI AL/PL ATELE T hemoglobin 9.0 g/dL 11.5-1 5.5 below low normal Not Available [facility] [address] [place], [address], 02/08/2023 17:10:09 02/08/20 23 02/08/2023 CBC WITH DIFFE RENTI AL/PL ATELE T hematocrit 31.1 % 36.0-4 8.0 below low normal Not Available [facility] [address] [place], [address], 02/08/2023 17:10:09 02/08/20 23 02/08/2023 CBC WITH DIFFE RENTI AL/PL ATELE T MCV 83 fL 80-[address] [facility] [address] [place], [address], 02/08/2023 17:10:09 02/08/20 23 02/08/2023 CBC WITH DIFFE RENTI AL/PL ATELE T MCH 24 pg 27-32 below low normal Not Available [facility] [address] [place], [address], 02/08/2023 17:10:09 02/08/20 23 02/08/2023 CBC WITH DIFFE RENTI AL/PL ATELE T MCHC 29 g/dL 32-36 below low normal Not Available [facility] [address] [place], [address], 02/08/2023 17:10:09 02/08/20 23 02/08/2023 CBC WITH DIFFE RENTI AL/PL ATELE T RDW 18.2 % 11.5-1 4.5 above high normal Not Available [facility] [address] [place], [address], 02/08/2023 17:10:09 02/08/20 23 02/08/2023 CBC WITH DIFFE RENTI AL/PL ATELE T platelets 406 K/uL 155-37 9 above high normal MPV 10.6 FL 8.9-[address] [facility] [address] [place], [address], 02/08/2023 17:10:09 02/08/20 23 02/08/2023 CBC WITH DIFFE RENTI AL/PL ATELE T neutrophils 60.2 % 40.0-[address] [facility] [address] [place], [address], 02/08/2023 17:10:09 02/08/20 23 02/08/2023 CBC WITH DIFFE RENTI AL/PL ATELE T lymphs 31.1 % 14.0-[address] [facility] [address] [place], [address], 02/08/2023 17:10:09 02/08/20 23 02/08/2023 CBC WITH DIFFE RENTI AL/PL ATELE T monocytes 6.7 % 4.0-[address] [facility] [address] [place], [address], 02/08/2023 17:10:09 02/08/20 23 02/08/2023 CBC WITH DIFFE RENTI AL/PL ATELE T eos 0 % 0-[address] [facility] [address] [place], [address], 02/08/2023 17:10:09 02/08/20 23 02/08/2023 CBC WITH DIFFE RENTI AL/PL ATELE T basos 1.2 % 0.0-1. 0 above high normal Not Available [facility] [address] [place], [address], 02/08/2023 17:10:09 02/08/20 23 02/08/2023 CBC WITH DIFFE RENTI AL/PL ATELE T neutrophils (absolute) 5.5 K/uL 1.4-7. [address] [facility] [address] [place], [address], 02/08/2023 17:10:09 02/08/20 23 02/08/2023 CBC WITH DIFFE RENTI AL/PL ATELE T lymphs (absolute) 2.8 K/uL 0.7-3. [address] [facility] [address] [place], [address], 02/08/2023 17:10:09 02/08/20 23 02/08/2023 CBC WITH DIFFE RENTI AL/PL ATELE T monocytes(ab solute) 0.6 K/uL 0.1-0. [address] [facility] [address] [place], [address], 02/08/2023 17:10:02/08/20 23 02/08/2023 CBC WITH DIFFE RENTI AL/PL ATELE T eos (absolute) 0.0 K/uL 0.0-0. [address] [facility] [address] [place], [address], 02/08/2023 17:10:09 02/08/20 23 02/08/2023 CBC WITH DIFFE RENTI AL/PL ATELE T baso (absolute) 0.1 K/uL 0.0-0. [address] [facility] [address] [place], [address], 02/08/2023 17:10:09 02/08/20 23 02/08/2023 CBC WITH DIFFE RENTI AL/PL ATELE T immature granulocytes 0.8 % Not Available [facility] [address] [place], [address], 02/08/2023 17:10:09 02/08/20 23 02/08/2023 CBC WITH DIFFE RENTI AL/PL ATELE T immature grans (abs) 0.1 K/uL Not Available [facility] Department [address] [place], [address], 02/08/2023 17:10:09 02/08/20 23 02/08/2023 CBC WITH DIFFE RENTI AL/PL ATELE T NRBC 0 % Not Available [facility] [address] [place], [address], 02/08/2023 17:10:09 05/26/20 23 05/27/2023 IRON AND TIBC iron bind.cap.(TI BC) 475 ug/dL 250-45 0 above high normal Not Available [facility] ([facility]) [address] [place], [address], 05/27/2023 08:28:46 05/26/20 23 05/27/2023 IRON AND TIBC UIBC 377 ug/dL 131-42 5 Not Available [facility] ([facility]) [address] [place], [address], 05/27/2023 08:28:46 05/26/20 23 05/27/2023 IRON AND TIBC iron 98 ug/dL 27-159 Not Available [facility] ([facility]) [address] [place], [address], 05/27/2023 08:28:46 05/26/20 23 05/27/2023 IRON AND TIBC iron saturation 21 % 15-55 Not Available [facility]) [address] [place], [address], 05/27/2023 08:28:46 03/15/20 24 03/16/2024 TSH+F REE T4 TSH 1.070 uIU/m L 0.450- 4.500 Not Available [facility] ([facility]) [address] [place], [address], 03/16/2024 08:28:47 03/15/20 24 03/16/2024 TSH+F REE T4 T4,free(dire ct) 1.09 NG/dL 0.82-1 .77 Not Available [facility] ([facility]) [address] [place], [address], 03/16/2024 08:28:47 03/15/20 24 03/16/2024 LIPID PANEL WITH LDL/H DL RATIO cholesterol, total 210 mg/dL 100-19 9 above high normal Not Available [facility] ([facility]) [address] [place], [address], 03/16/2024 08:28:47 03/15/20 24 03/16/2024 LIPID PANEL WITH LDL/H DL RATIO triglyceride s 209 mg/dL 0-149 above high normal Not Available [facility] ([facility]) [address] [place], [address], 03/16/2024 08:28:47 03/15/20 24 03/16/2024 LIPID PANEL WITH LDL/H DL RATIO HDL cholesterol 58 mg/dL >39 Not Available [facility]) [address] [place], [address], 03/16/2024 08:28:47 03/15/20 24 03/16/2024 LIPID PANEL WITH LDL/H DL RATIO VLDL cholesterol neel 36 mg/dL 5-40 Not Available [facility] ([facility]) [address] [place], [address], 03/16/2024 08:28:47 03/15/20 24 03/16/2024 LIPID PANEL WITH LDL/H DL RATIO LDL chol calc ([facility]) 116 mg/dL 0-99 above high normal Not Available [facility] ([facility]) [address] [place], [address], 03/16/2024 08:28:47 03/15/20 24 03/16/2024 LIPID PANEL WITH LDL/H DL RATIO LDL/HDL ratio 2.0 ratio 0.0-3. 2 LDL/H DL Ratio Men Women 1/2 Avg.R isk 1.0 1.5 Avg.R isk 3.6 3.2 2X Avg.R isk 6.2 5.0 3X Avg.R isk 8.0 6.1 Not Available [facility] ([facility]) [address] [place], [address], 03/16/2024 08:28:47 03/15/20 24 03/16/2024 COMP. METAB OLIC PANEL (14) glucose 99 mg/dL 70-99 Not Available [facility] ([facility]) [address] [place], [address], 03/16/2024 08:28:48 03/15/20 24 03/16/2024 COMP. METAB OLIC PANEL (14) BUN 9 mg/dL 6-24 Not Available [facility] ([facility]) [address] [place], [address], 03/16/2024 08:28:48 03/15/20 24 03/16/2024 COMP. METAB OLIC PANEL (14) creatinine 0.59 mg/dL 0.57-1 .00 Not Available [facility] ([facility]) [address] [place], [address], 03/16/2024 08:28:48 03/15/20 24 03/16/2024 COMP. METAB OLIC PANEL (14) eGFR 112 mL/mi n/1.7 3 >59 Not Available [facility] ([facility]) [address] [place], [address], 03/16/2024 08:28:48 03/15/20 24 03/16/2024 COMP. METAB OLIC PANEL (14) BUN/creatini ne ratio 15 9-23 Not Available [facility] ([facility]) [address] [place], [address], 03/16/2024 08:28:48 03/15/20 24 03/16/2024 COMP. METAB OLIC PANEL (14) sodium 140 mmol/ L 134-14 4 Not Available [facility] ([facility]) [address] [place], [address], 03/16/2024 08:28:48 03/15/20 24 03/16/2024 COMP. METAB OLIC PANEL (14) potassium 3.3 mmol/ L 3.5-5. 2 below low normal Not Available [facility] ([facility]) [address] [place], [address], 03/16/2024 08:28:48 03/15/20 24 03/16/2024 COMP. METAB OLIC PANEL (14) chloride 94 mmol/ L 96-106 below low normal Not Available [facility] ([facility]) [address] [place], [address], 03/16/2024 08:28:48 03/15/20 24 03/16/2024 COMP. METAB OLIC PANEL (14) carbon dioxide, total 29 mmol/ L 20-29 Not Available [facility] ([facility]) [address] [place], [address], 03/16/2024 08:28:48 03/15/20 24 03/16/2024 COMP. METAB OLIC PANEL (14) calcium 9.3 mg/dL 8.7-10 .2 Not Available [facility] ([facility]) [address] [place], [address], 03/16/2024 08:28:48 03/15/20 24 03/16/2024 COMP. METAB OLIC PANEL (14) protein, total 7.0 g/dL 6.0-8. 5 Not Available [facility] ([facility]) [address] [place], [id number], 03/16/2024 08:28:48 03/15/20 24 03/16/2024 COMP. METAB OLIC PANEL (14) albumin 4.4 g/dL 3.9-4. 9 Not Available [facility] ([facility]) [address] [place], [id number], 03/16/2024 08:28:48 03/15/20 24 03/16/2024 COMP. METAB OLIC PANEL (14) globulin, total 2.6 g/dL 1.5-4. 5 Not Available [facility] ([facility]) [address] [place], [id number], 03/16/2024 08:28:48 03/15/20 24 03/16/2024 COMP. METAB OLIC PANEL (14) A/G ratio 1.7 1.2-2. 2 Not Available [facility] ([facility]) [address] [place], [place], [id number], 03/16/2024 08:28:48 03/15/20 24 03/16/2024 COMP. METAB OLIC PANEL (14) bilirubin, total 0.2 mg/dL 0.0-1. 2 Not Available [facility] ([facility]) [address] [place], [place], [address], 03/16/2024 08:28:48 03/15/20 24 03/16/2024 COMP. METAB OLIC PANEL (14) alkaline phosphatase 144 IU/L 44-121 above high normal Not Available [facility] ([facility]) [address] [place], [place], [address], 03/16/2024 08:28:48 03/15/20 24 03/16/2024 COMP. METAB OLIC PANEL (14) AST (SGOT) 21 IU/L 0-40 Not Available [facility] ([facility]) [address] [facility], [place], [address], 03/16/2024 08:28:48 03/15/20 24 03/16/2024 COMP. METAB OLIC PANEL (14) ALT (SGPT) 19 IU/L 0-32 Not Available [facility] ([facility]) [address] [place], [address], 03/16/2024 08:28:48 03/15/20 24 03/16/2024 VITAM IN B12 AND FOLAT E vitamin B12 1165 pg/mL 232-12 45 Not Available [facility] ([facility]) [address] [facility], [place], [address], 03/16/2024 08:28:49 03/15/20 24 03/16/2024 VITAM IN B12 AND FOLAT E folate (folic acid), serum 2.8 NG/mL >3.0 below low normal A serum folat e bubba ntrat ion of less than 3.1 ng/mL is consi dered to repre sent clini neel defic iency . Not Available [facility] ([facility]) [address] [facility], [place], [address], 03/16/2024 08:28:49 03/15/20 24 03/16/2024 IRON AND TIBC iron bind.cap.(TI BC) 470 ug/dL 250-45 0 above high normal Not Available [facility] ([facility]) [address] [facility], [place], [address], 03/16/2024 08:28:49 03/15/20 24 03/16/2024 IRON AND TIBC UIBC 440 ug/dL 131-42 5 above high normal Not Available [facility] ([facility]) [address] [place], [address], 03/16/2024 08:28:49 03/15/20 24 03/16/2024 IRON AND TIBC iron 30 ug/dL 27-159 Not Available [facility] ([facility]) [address] [place], [address], 03/16/2024 08:28:49 03/15/20 24 03/16/2024 IRON AND TIBC iron saturation 6 % 15-55 alert low Not Available [facility] ([facility]) [address] [place], [address], 03/16/2024 08:28:49 03/15/20 24 03/16/2024 HEMOG LOBIN A1C hemoglobin A1C 5.6 % 4.8-5. 6 Predi abete s: 5.7 - 6.4 Diabe maia: >6.4 Glyce sherley contr ol for adult s with diabe maia: <7.0 Not Available [facility] ([facility]) [address] [place], [address], 03/16/2024 08:28:50 03/15/20 24 03/16/2024 CHICO TIN ferritin 14 NG/mL 15-150 below low normal Not Available [facility] ([facility]) [address] [place], [address], 03/16/2024 08:28:50 03/15/20 24 03/16/2024 CBC WITH DIFFE RENTI AL/PL ATELE T WBC 8.7 x10e3 /uL 3.4-10 .8 Not Available [facility] ([facility]) [address] [place], [address], 03/16/2024 08:28:51 03/15/20 24 03/16/2024 CBC WITH DIFFE RENTI AL/PL ATELE T RBC 3.89 x10e6 /uL 3.77-5 .28 Not Available [facility] ([facility]) [address] [place], [address], 03/16/2024 08:28:51 03/15/20 24 03/16/2024 CBC WITH DIFFE RENTI AL/PL ATELE T hemoglobin 11.3 g/dL 11.1-1 5.9 Not Available [facility] ([facility]) [address] [place], [address], 03/16/2024 08:28:51 03/15/20 24 03/16/2024 CBC WITH DIFFE RENTI AL/PL ATELE T hematocrit 35.4 % 34.0-4 6.6 Not Available [facility] ([facility]) [address] [facility], [place], [address], 03/16/2024 08:28:51 03/15/20 24 03/16/2024 CBC WITH DIFFE RENTI AL/PL ATELE T MCV 91 fL 79-97 Not Available [facility] ([facility]) [address] [facility], [place], [address], 03/16/2024 08:28:51 03/15/20 24 03/16/2024 CBC WITH DIFFE RENTI AL/PL ATELE T MCH 29.0 pg 26.6-3 3.0 Not Available [facility] ([facility]) [address] [facility], [place], [address], 03/16/2024 08:28:51 03/15/20 24 03/16/2024 CBC WITH DIFFE RENTI AL/PL ATELE T MCHC 31.9 g/dL 31.5-3 5.7 Not Available [facility] ([facility]) [address] [facility], [place], [address], 03/16/2024 08:28:51 03/15/20 24 03/16/2024 CBC WITH DIFFE RENTI AL/PL ATELE T RDW 16.3 % 11.7-1 5.4 above high normal Not Available [facility] ([facility]) [address] [place], [address], 03/16/2024 08:28:51 03/15/20 24 03/16/2024 CBC WITH DIFFE RENTI AL/PL ATELE T platelets 415 x10e3 /uL 150-45 0 Not Available [facility] ([facility]) [address] [place], [address], 03/16/2024 08:28:51 03/15/20 24 03/16/2024 CBC WITH DIFFE RENTI AL/PL ATELE T neutrophils 67 % notest ab. Not Available [facility] ([facility]) [address] [facility], [place], [address], 03/16/2024 08:28:51 03/15/20 24 03/16/2024 CBC WITH DIFFE RENTI AL/PL ATELE T lymphs 26 % notest ab. Not Available [facility] ([facility]) [address] [facility], [place], [address], 03/16/2024 08:28:51 03/15/20 24 03/16/2024 CBC WITH DIFFE RENTI AL/PL ATELE T monocytes 5 % notest ab. Not Available [facility] ([facility]) [address] [facility], [place], [address], 03/16/2024 08:28:51 03/15/20 24 03/16/2024 CBC WITH DIFFE RENTI AL/PL ATELE T eos 0 % notest ab. Not Available [facility] ([facility]) [address] [facility], [place], [address], 03/16/2024 08:28:51 03/15/20 24 03/16/2024 CBC WITH DIFFE RENTI AL/PL ATELE T basos 1 % notest ab. Not Available [facility] ([facility]) [address] [facility], [place], [address], 03/16/2024 08:28:51 03/15/20 24 03/16/2024 CBC WITH DIFFE RENTI AL/PL ATELE T neutrophils (absolute) 5.8 x10e3 /uL 1.4-7. 0 Not Available [facility] ([facility]) [address] [facility], [place], [address], 03/16/2024 08:28:51 03/15/20 24 03/16/2024 CBC WITH DIFFE RENTI AL/PL ATELE T lymphs (absolute) 2.2 x10e3 /uL 0.7-3. 1 Not Available [facility] ([facility]) [address] [facility], [place], [address], 03/16/2024 08:28:51 03/15/20 24 03/16/2024 CBC WITH DIFFE RENTI AL/PL ATELE T monocytes(ab solute) 0.4 x10e3 /uL 0.1-0. 9 Not Available [facility] ([facility]) [address] [facility], [place], [address], 03/16/2024 08:28:51 03/15/20 24 03/16/2024 CBC WITH DIFFE RENTI AL/PL ATELE T eos (absolute) 0.0 x10e3 /uL 0.0-0. 4 Not Available [facility] ([facility]) [address] [facility], [place], [address], 03/16/2024 08:28:51 03/15/20 24 03/16/2024 CBC WITH DIFFE RENTI AL/PL ATELE T baso (absolute) 0.1 x10e3 /uL 0.0-0. 2 Not Available [facility] ([facility]) [address] [facility], [place], [address], 03/16/2024 08:28:51 03/15/20 24 03/16/2024 CBC WITH DIFFE RENTI AL/PL ATELE T immature granulocytes 1 % notest ab. Not Available [facility] ([facility]) [address] [place], [address], 03/16/2024 08:28:51 03/15/20 24 03/16/2024 CBC WITH DIFFE RENTI AL/PL ATELE T immature grans (abs) 0.1 x10e3 /uL 0.0-0. 1 Not Available [facility] ([facility]) [address] [place], [address], 03/16/2024 08:28:51 03/15/20 24 03/16/2024 VITAM IN D, 25-HY DROXY vitamin D, 25-hydroxy 52.2 NG/mL 30.0-1 00.0 Vitam in D defic iency has been defin ed by the Insti tute of Medic ine and an Endoc rine Socie ty pract ice guide line as a level of serum 25-OH vitam in D less than 20 ng/mL (1,2) . The Endoc rine Socie ty went [facility] er defin e vitam in D insuf ficie ncy as a level betwe en 21 and 29 ng/mL (2). 1. IOM (Inst itute of Medic ine). 2009. Dieta ry refer ence intak es for calci um and D. Rinku ramirez [place]: [facility] Press . 2. Hadley noyola [place], Denita moraes [place], Vashti off-F errar i PERLA, et al. Evalu ation , treat ment, and preve ntion of vitam in D defic iency : an Endoc rine Socie ty clini neel pract ice guide line. JCEM. 2010; 96(7) :1911 -30. Not Available [facility] ([facility]) [address] [facility], [place], [address], 03/16/2024 08:28:51 Result Notes None recorded. Problems Name Problem SNOMED Code Status Onset Date Resolution Date Notes Provider Name and Address Organization Details Recorded Time Gastroesophag eal reflux disease 968706171 Active 2017 Not Available [employer] 1 11:05:11 Essential hypertension 94344032 Active 2017 LEROY CORDOVA Attn: Accounting ,[address] [place], [address] , [facility] - [facility] 2 15:15:05 Major depressive disorder 042978119 Active 2018 LEROY CORDOVA Attn: Accounting ,[address] [facility], [place], [address] , [place] - [facility] 2 15:15:03 Generalized anxiety disorder 58052223 Active 2021 LEROY CORDOVA Attn: Accounting ,[address] [place], [address] , [place] [facility] 2 15:15:09 Tobacco dependence syndrome 03147141 Active 2021 LEROY CORDOVA Attn: Accounting ,[address] [place], [address] , [place] [facility] 2 15:15:14 Hyperlipidemi a 90976174 Active 2022 LEROY CORDOVA Attn: Accounting ,[address] [place], [address] , [place] [facility] 3 10:42:53 Hypokalemia 12028344 Active 2022 LEROY CORDOVA Attn: Accounting ,[address] [place], [address] , [place] [facility] 3 10:42:56 Iron deficiency anemia 62088608 Active 2022 LEROY CORDOVA Attn: Accounting ,[address] [place], [address] , [place] [facility] 3 10:42:57 Vitamin D deficiency 87568965 Active 2022 LEROY CORDOVA Attn: Accounting ,[address] [place], [address] , [place] [facility] 3 10:44:09 Disorder of vitamin B12 024460249 Active 2022 LEROY CORDOVA Attn: Accounting ,[address] [place], [address] , [place] [facility] 3 10:44:06 Problem Notes None recorded. Procedures Surgical History Date Name Laterality Status Provider Name and Address Organization Details Recorded Time 11/14/19 21 hemorrhoidectomy completed LEROY CORDOVA Attn: Accounting,[address] [place], [address], [place] [facility] 06/15/2023 16:08:19 Imaging Results None recorded. Procedure Notes None recorded. Medical Equipment None Reported. Allergies No known drug allergies Medications Name Sig Start Date Stop Date Status Note LastModified by Organization Details LastModified Time fluoxetine 40 mg capsule TAKE 2 CAPSULES BY MOUTH ONCE A DAY DIRECTED FOR 90 DAYS, FOR DEPRESSIO N. 2024 active Not Available Not Available Not Avai lable amoxicillin 500 mg capsule 12/15 completed Not Available Not Available Not Available atorvastati n 40 mg tablet TAKE 1 TABLET BY MOUTH EVERYDAY AT BEDTIME 2023 active Not Available Not Available Not Avai lable methocarbam ol 500 mg tablet Take 1 tablet 3 times a day by oral route as needed. 04/06 completed Not Available Not Available Not Available azithromyci n 250 mg tablet 12/15 completed Not Available Not Available Not Available atenolol 50 mg-chlortha lidone 25 mg tablet TAKE 1 TABLET BY MOUTH TWICE A DAY 2023 active Not Available Not Available Not Avai lable cyanocobala min (vit B-12) 1,000 mcg tablet TAKE 1 TABLET BY MOUTH EVERY DAY BEFORE A MEAL 2023 active Not Available Not Available Not Avai lable potassium chloride ER 10 mEq tablet,exte nded release TAKE 1 TABLET BY MOUTH EVERY DAY WITH MEALS FOR 30 DAYS 03/15 completed Not Available Not Available Not Available tramadol 50 mg tablet 04/06 completed Not Available Not Available Not Available hydrocortis one acetate 25 mg rectal suppository 04/06 completed Not Available Not Available Not Available potassium chloride 20 mEq/15 mL oral liquid Take 15 mL every day by oral route for 90 days. 02/09 completed Not Available Not Available Not Available diazepam 2 mg tablet Take 1 tablet BID and 1/2 tablet at bedtime 04/06 completed Not Available Not Available Not Available ferrous sulfate 325 mg (65 mg iron) tablet Take 1 tablet every other day by oral route before meals for 90 days, for iron deficienc y. active Not Available Not Available No t Available omeprazole 20 mg capsule,del ayed release TAKE ONE CAPSULE BY MOUTH EVERY MORNING BEFORE MEALS 2020 active OTC Not Available Not Available Not Avai lable hydroxyzine HCl 25 mg tablet Take 1 tablet 3 times a day by oral route as needed for 30 days, for anxiety. active Not Available Not Available No t Available Vitamin D2 1,250 mcg (50,000 unit) capsule Take 1 capsule every week by oral route. 04/06 completed Not Available Not Available Not Available metronidazo le 0.75 % topical gel APPLY A THIN LAYER TO THE AFFECTED AREA(S) BY TOPICAL ROUTE 2 TIMES PER DAY IN THE MORNING AND EVENING 04/06 completed Not Available Not Available Not Available oxycodone 5 mg tablet 01/09 completed Not Available Not Available Not Available azithromyci n 500 mg tablet 12/15 completed Not Available Not Available Not Available Klor-Con M20 mEq tablet,exte nded release TAKE 1 TABLET BY MOUTH EVERY DAY 01/09 completed Not Available Not Available Not Available bupropion HCl XL 150 mg 24 hr tablet, extended release TAKE 1 TABLET BY MOUTH EVERY DAY IN THE MORNING FOR DEPRESSIO N 2023 active Not Available Not Available Not Avai lable metronidazo le 1 % topical gel APPLY TO AFFECTED AREA EVERY DAY RUB IN GENTLY AND COMPLETEL Y active Not Available Not Available No t Available cholecalcif maite (vitamin D3) (bulk) 2,400 unit/mL liquid TAKE 2 ML EVERY DAY BY MISCELL. ROUTE. 04/06 completed Not Available Not Available Not Available L-Methylfol ate 7.5 mg tablet Take 1 tablet every day by oral route in the morning for 30 days. active Not Available Not Available No t Available Vitals Date Recorded Body height Provider Name an d Address Organization Details Last Updated DateTime 06/15/2023 157.48 cm Elaine Christina CMA [place] - [facility] 06/15/20 15:54:05 Date Recorded Body mass index (BMI) Body weight Provider Name and Address Organization Details Last Updated DateTime 06/15/2023 26.6 kg/m2 03527.69 g Elaine Christina CMA [facility] 06/15/2023 15:58:48 Date Recorded Oxygen saturation Oxygen saturation in Arterial blood by Pulse oximetry Provider Name and Address Organization Details Last Updated DateTime 06/15/2023 98 % 98 % Elaine Sanford, [place] - [facility] 06/15/2023 15:58:50 Date Recorded Heart rate Provider Name an d Address Organization Details Last Updated DateTime 06/15/2023 102 /min Elaine Sanford, [place] [facility] 06/15/20 15:58:52 Date Recorded Respiratory rate Provider Name a nd Address Organization Details Last Updated DateTime 06/15/2023 16 /min Elaine Sanford, [place] [facility] 06/15/20 15:58:53 Date Recorded Body temperature Provider Name a nd Address Organization Details Last Updated DateTime 06/15/2023 98.3 [degF] Elaine Sanford, [place] - [facility] 023 15:58:57 Date Recorded Heart rate Provider Name an d Address Organization Details Last Updated DateTime 06/17/2023 80 /min LEROY CORDOVA Attn: Accounting,[address] [place], [address], [place] [facility] 06/17/2023 12:37:23 Date Recorded Body height Provider Name an d Address Organization Details Last Updated DateTime 11/02/2023 157.48 cm Elaine Sanford, [employer] [place] [facility] 11/02/20 15:15:15 Date Recorded Body mass index (BMI) Body weight Provider Name and Address Organization Details Last Updated DateTime 11/02/2023 26.6 kg/m2 56672.69 g Elaine Christina, [place] [facility] 11/02/2023 15:19:17 Date Recorded Oxygen saturation Oxygen saturation in Arterial blood by Pulse oximetry Provider Name and Address Organization Details Last Updated DateTime 11/02/2023 99 % 99 % Elaine Sanford, [employer] [facility] 11/02/2023 15:19:25 Date Recorded Heart rate Provider Name an d Address Organization Details Last Updated DateTime 11/02/2023 92 /min Elaine Christina, [place] [facility] 11/02/20 15:19:27 Date Recorded Respiratory rate Provider Name a nd Address Organization Details Last Updated DateTime 11/02/2023 16 /min Elaine Christina, [place] [facility] 11/02/20 15:19:28 Date Recorded Body temperature Provider Name a nd Address Organization Details Last Updated DateTime 11/02/2023 98.6 [degF] Elaine Christina CMA [facility] 023 15:19:35 Date Recorded Body height Provider Name an d Address Organization Details Last Updated DateTime 03/15/2024 157.48 cm Luann Lock MA [facility] 13:48:03 Date Recorded Body mass index (BMI) Body weight Provider Name and Address Organization Details Last Updated DateTime 03/15/2024 27.4 kg/m2 35846.86 g Luann Lock MA [facility] 0 03/15/2024 13:48:15 Date Recorded Oxygen saturation Oxygen saturation in Arterial blood by Pulse oximetry Provider Name and Address Organization Details Last Updated DateTime 03/15/2024 97 % 97 % Luann Lock MA [facility] 03/15/2024 13:48:17 Date Recorded Heart rate Provider Name an d Address Organization Details Last Updated DateTime 03/15/2024 82 /min Luann Lock MA [facility] 13:48:20 Date Recorded Respiratory rate Provider Name a nd Address Organization Details Last Updated DateTime 03/15/2024 16 /min Luann Lock MA [place] - [facility] 13:48:23 Date Recorded Systolic blood pressure Diastolic blood pressure Provider Name and Address Organization Details Last Updated DateTime 06/15/2023 108 mm[Hg] 50 mm[Hg] Elaine Christina CMA [place] [facility] 06/15/2023 15:59:01 Date Recorded Systolic blood pressure Diastolic blood pressure Provider Name and Address Organization Details Last Updated DateTime 11/02/2023 128 mm[Hg] 66 mm[Hg] Elaine Christina CMA [place] [facility] 11/02/2023 15:19:40 Date Recorded Systolic blood pressure Diastolic blood pressure Provider Name and Address Organization Details Last Updated DateTime 03/15/2024 150 mm[Hg] 89 mm[Hg] Luann Lock MA [place] [facility] 03/15/2024 13:48:13 Social History Question Answer Notes LastModified by Organizat ion Details LastModified Time Tobacco Smoking Status Former Smoker Elaine Christina CMA null, [place] - [facility] 12/15/2017 15:29:38 Do You Have An Advance Directive? No Information not available 04/15/2021 What Is Your Level Of Alcohol Consumption? Heavy Information not available 04/15/2021 How Many Years Have You Consumed Alcohol? 6 Information not available 04/15/2021 Are You Blind Or Do You Have Difficulty Seeing? No Information not available 04/15/2021 What Is Your Level Of Caffeine Consumption? Moderate Information not available 04/15/2021 In The 14 Days Before Symptom Onset, Have You Had Close Contact With A Laboratory-confir med COVID-19 While That Case Was Ill? No Information not available 01/09/2021 In The 14 Days Before Symptom Onset, Have You Had Close Contact With A Person Who Is Under Investigation For COVID-19 While That Person Was Ill? No Information not available 01/09/2021 Have You Been To An Area Known To Be High Risk For COVID-19? No Information not available 01/09/2021 Are You Currently Employed? Yes Information not available 04/15/2021 Are You Deaf Or Do You Have Serious Difficulty Hearing? No Information not available 04/15/2021 What Type Of Diet Are You Following? REGULAR Information not available 04/15/2021 Do You Or Have You Ever Used E-cigarettes Or Vape? 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 No Information not available 04/15/2021 What Was The Date Of Your Most Recent Tobacco Screening? 03/15/2024 [email or web address] Information not available 03/15/2024 How Many Children Do You Have? 0 Information not available 04/15/2021 Do You Use Protection During Sex? Always Information not available 04/15/2021 What Is Your Relationship Status? Information not available 04/15/2021 Do You Use Your Seat Belt Or Car Seat Routinely? Yes Information not available 04/15/2021 Are You Sexually Active? Yes Information not available 04/15/2021 Do You Have Smoke And Carbon Monoxide Detectors In Your Home? Yes Information not available 04/15/2021 Are You Passively Exposed To Smoke? No Information no t available 04/15/2021 Do You Or Have You Ever Used Smokeless Tobacco? Never Used Smokeless Tobacco Information not available 04/15/2021 Do You Feel Stressed (tense, Restless, Nervous, Or Anxious, Or Unable To Sleep At Night)? [id number] Information not available 04/15/2021 Do You Use Any Illicit Or Recreational Drugs? No Information not available 04/15/2021 Do You Use Sunscreen Routinely? Yes Information not available 04/15/2021 Has Tobacco Cessation Counseling Been Provided? Yes Information not available 03/15/2024 On What Date Was Tobacco Cessation Counseling Provided? 03/15/2024 [email or web address] Information not available 03/15/2024 Do You Or Have You Ever Used Any Other Forms Of Tobacco Or Nicotine? Yes Information not available 04/15/2021 How Many Years Have You Used E-cigarettes Or Vape? 8 Information not available 04/15/2021 Sex: Unknown Functional Status Question Answer Note LastModified by Organizat ion Details LastModified Time Are you able to care for yourself? Yes Information not available 04/15/2021 What is your exercise level? Occasional Information not available 04/15/2021 Mental Status None recorded. Family History Relationship Description Onset Age of this Age Resolved Age Notes LastModified by Organization Details LastModified Time Father Malignant tumor of breast thulsema Not available 2017 15:29:53 Father Heart disease thulsema Not available 2017 15:30:05 Father Hypertensive disorder thulsema Not available 2017 15:30:24 Mother Heart disease thulsema Not available 2017 15:30:05 Mother Malignant tumor of breast [email or web address] Not available 2021 10:18:59 Medical History Condition Response Coronary Artery Disease N Other N Atrial Fibrillation N High Blood Pressure Y Thyroid Problems N Kidney or Bladder Problems N Depression Y COPD N Blood Clots N GI Problems N Skin Problems N Anemia N Heart Attack (MD) N Diabetes N Anxiety Disorder Y Muscle, Joint, or Bone Problems N Seizures/Epilepsy N Acid Reflux (GERD) Y Cancer N Stroke N Allergies N Asthma N Substance Abuse N High Cholesterol N Hepatitis N Liver Disease N Schizophrenia N Headaches N Osteoporosis N Heart Failure N Gynecological History Statement/Question Response Flow Moderate Date of LMP 05/16/2023 Frequency of Cycle (Q days) 28 Menses Monthly Y Date of Last Pap Smear Duration of Flow (days) 5 LMP Unknown Obstetrics History GPAL:G 2 P 0 0 2 0 Type Value Multiple Births 0 Full Term 0 Induced 2 Spontaneous 0 Premature 0 Living 0 Ectopics 0 Total 2 Immunizations Vaccine Type Date Status Note Provider Nam e and Address Organization Details Recorded Time COVID-19, mRNA, LNP-S, PF, 100 mcg/0.5mL dose or 50 mcg/0.25mL dose 1 completed Diamond Perales RN [place], [place] [facility] 04/15/2021 12:40:13 COVID-19, mRNA, LNP-S, PF, 100 mcg/0.5mL dose or 50 mcg/0.25mL dose 1 completed Diamond Peral[place], [place] [facility] 04/15/2021 12:40:23 influenza, intradermal, quadrivalent, preservative free 1 completed Carlyn Nazario [place], [place] [facility] 07/31/2021 12:13:08 SARS-COV-2 (COVID-19) vaccine, UNSPECIFIED 1 completed Diamond Peral[place] [facility] 10/12/2022 14:21:41 SARS-COV-2 (COVID-19) vaccine, UNSPECIFIED 2 completed Diamond Peral[place] [facility] 10/12/2022 14:21:55 influenza nasal, unspecified formulation 2 completed Diamond Peral[place] [facility] 10/12/2022 14:22:15 Influenza, split virus, quadrivalent, preservative 8 completed Not Available [facility] 12/01/2019 02:34:55 Past Encounters Encounter ID Performer Location Encounter Start Date Encounter Closed Date Diagnosis/Indication Diagnosis SNOMED-CT Code Diagnosis ICD10 Code Diagnosis Note [id number] CLAUDIA Perera NP [facility] [address] [place] [address] 12/15/2017 15:21:01 12/16/2017 09:41:55 Active or passive immunization 125351943 Z23 Gastroesop hageal reflux disease 165197655 K21.9 Omeprazole as directed. Essential hypertension 91624091 I10 Continue atenolol/c hlorthalid one as directed. Mixed anxi ety and depressive disorder 289802559 F41.8 Continue fluoxetine and diazepam. [id number] Zeny Jesus MD [facility] [address] [place] [address] 12/14/2018 15:53:28 12/15/2018 08:38:15 Dysuria 76368677 R30.0 patient does not appear to have a uti; no blood makes renal stone at the UVJ less likely but not impossible . Right lowe r quadrant pain 907993019 R10.31 Patient does not appear to have appendicit is or any kind of surgical abdomen; her exam could be consistent with a small ovarian cyst or mittelschm erz. Will observe and if getting worse go to emergency room; if symptoms persist after next menses, will obtain a pelvic ultrasound to look for an ovarian cyst. Standardiz ed adult depression screening tool completed [id number] Z13.89 patient does not appear to be significan tly depressed. [id number] Zeny Jesus MD [facility] [address] [place] [address] 07/10/2019 16:34:58 07/12/2019 08:05:41 Moderate recurrent major depression 58816748 F33.1 Essential hypertension 68632942 I10 Gastroesop hageal reflux disease without esophagitis 543218826 K21.9 Screening mammography 24 093244 Z12.31 Adult heal th examination 939882137 Z00.00 [id number] Zeny Jesus MD [facility] [address] [place] [address] 12/21/2019 16:20:30 12/24/2019 09:52:19 Essential hypertension 02100821 I10 Moderate r ecurrent major depression 42102994 F33.1 Gastroesop hageal reflux disease without esophagitis 016171670 K21.9 Screening mammography 24 405680 Z12.31 Adult heal th examination 953993343 Z00.00 [id number] Zeny Jesus MD [facility] [address] [place] [address] 01/09/2021 08:05:36 01/12/2021 12:10:29 Essential hypertension 88858565 I10 Primary co mbined hyperlipidemia 323198112 E78.2 discussed low fat, low carb diet, and encouraged exercise. Gastroesop hageal reflux disease without esophagitis 439449334 K21.9 Vitamin D deficiency 347 48670 E55.9 Vitamin B1 2 deficiency (non anemic) 91330719 E53.8 Mixed anxi ety and depressive disorder 305255649 F41.8 [id number] Zeny Jesus MD [facility] [address] [place] [address] 04/15/2021 12:22:38 04/20/2021 07:59:26 Primary combined hyperlipidemia 909207935 E78.2 discussed low fat, low carb diet, and encouraged exercise. Essential hypertension 30200867 I10 Strain of muscle of right shoulder 4695460270 4303660 S46.911D fell out of chair and landed on shoulder; Symptoms are improving, normal range of motion but sore. Moderate r ecurrent major depression 24643894 F33.1 Vitamin D deficiency 347 83748 E55.9 Rosacea, papular type 75 754511 L71.9 [id number] LEROY CORDOVA [facility] [address] [place] [address] 04/06/2022 10:05:44 04/07/2022 09:53:02 Generalized anxiety disorder 72831859 F41.1 using diazepam PRN when she is restless at night and can't sleep or when her is driving and traffic makes me nervous di scussed with pt that provider does not fill benzos unless she is willing to taper, reports she does not feel addicted to something that is used as needed jose ling to try hydroxyzin e, start low dosef/u if no relief or increase dose Essential hypertension 49781705 I10 BP 104/64refi lls Major depr essive disorder 984914003 F32.9 PHQ 3tried effexor in the pasthas been on anti-depre ssants since she was a teenagerre fill prozac Hypokalemia 19488528 E87 .6 f/u with labs Tobacco de pendence syndrome 19020363 F17.200 uses e-cigarett es x10 yrsdiscuss ed NRT, pt is not amendable [id number] LEROY CORDOVA [facility] [address] [place] [address] 10/12/2022 14:07:59 10/13/2022 13:33:53 Essential hypertension 84998219 I10 10/12/22:d id not take today BP medication todayBP 142/82refi ll 04/07/22:BP 104/64refi lls Generalize d anxiety disorder 91754154 F41.1 10/12/22:d oing well with hydroxyzin ewill refill 04/06/22:us ing diazepam PRN when she is restless at night and can't sleep or when her is driving and traffic makes me nervous di scussed with pt that provider does not fill benzos unless she is willing to taper, reports she does not feel addicted to something that is used as needed jose haley to try hydroxyzin e, start low dosef/u if no relief or increase dose Major depr essive disorder 135031091 F32.9 10/12/22:P HQ 4refill prozacdoin g well on max dose 04/06/22:PH Q 3tried effexor in the pasthas been on anti-depre ssants since she was a teenagerre fill prozac Tobacco de pendence syndrome 24708833 F17.200 uses e-cigarett es x10 yrsvaping with 6% nicotinedi scussed decreasing to 3% nicotine, pt is amendable Screening for malignant neoplasm of colon 755418121 Z12.11 maternal grandfathe r with colon cancerpare nts had precancero us polypsh/o hemorrhoid ectomyrec' d colonoscop y instead of cologuard due to FHpt not amendable at this timewill discuss at 6 mo f/u Hypokalemia 28943746 E87 .6 make nurse visit for labsdid not complete at prior visit Overweight 089927014 E66 .3 [id number] Jennifer Gama [facility] [address] [facility] [place] [address] 02/07/2023 14:49:37 02/07/2023 15:14:02 Adult health examination 776073704 Z00.00 [id number] Luann Lock MA [facility] [address] [facility] [place] [address] 05/26/2023 15:48:58 05/26/2023 16:11:08 [id number] LEROY CORDOVA [facility] [address] [place] [place] [address] 06/15/2023 15:51:08 06/15/2023 16:28:18 Major depressive disorder 023193995 F32.9 06/15/23:PHQ 3refill 10/12/22:P HQ 4refill prozacdoin g well on max dose 04/06/22:PH Q 3tried effexor in the pasthas been on anti-depre ssants since she was a teenagerre fill prozac Essential hypertension 13571350 I10 06/15/23:BP 108/50refi ll 10/12/22:d id not take today BP medication todayBP 142/82refi ll 04/07/22:BP 104/64refi lls Screening for malignant neoplasm of breast 185483717 Z12.39 due for mammo Hyperlipidemia 83085684 E78.5 re-check cholestero l started ator 40- 12/2022tota l 286LDL 200 Hypokalemia 00418536 E87 .6 pt will go to lab corpon K 10 mEq Disorder o f vitamin B12 612404155 E53.8 re-check Electronic cigarette user 989512345 Z72.89 vaping 3% nicotinetr mariola to wean down off nicotine Iron defic iency anemia 61382621 D50.9 iron studies 05/2023 normalre-c heck CBC and ferritin- pt will go to lab sandhya Screening for malignant neoplasm of colon 182255339 Z12.11 06/15/23:pt wants to wait until winter to have colonoscop germaine put reminder in chart for f/u in 5 months 10/12/22:manjit portillo r with colon cancer, age [age]paren ts had precancero us polypsh/o hemorrhoid ectomyrec' d colonoscop y instead of cologuard due to FHpt not amendable at this timewiestefani discuss at 6 mo f/u Screening for malignant neoplasm of cervix 320866740 Z12.4 [facility] 03/2023 [id number] LEROY CORDOVA [facility] [address] [place] [address] 11/02/2023 15:07:30 11/04/2023 16:18:37 Depression screening 775410480 Z13.31 0 Screening for malignant neoplasm of colon 936851155 Z12.11 11/02/23:G I referral 06/15/23:pt wants to wait until winter to have colonoscop germaine put reminder in chart for f/u in 5 months 10/12/22:manjit portillo r with colon cancer, age [age]paren ts had precancero us polypsh/o hemorrhoid ectomyrec' d colonoscop y instead of cologuard due to FHpt not amendable at this timewiestefani discuss at 6 mo f/u Generalize d anxiety disorder 82306987 F41.1 11/02/23:r efill hydroxyzin eincreased stress at home taking care of her mom with bone cancer 10/12/22:d oing well with hydroxyzin ewill refill 04/06/22:us ing diazepam PRN when she is restless at night and can't sleep or when her is driving and traffic makes me nervous di scussed with pt that provider does not fill benzos unless she is willing to taper, reports she does not feel addicted to something that is used as needed jose haley to try hydroxyzin e, start low dosef/u if no relief or increase dose Hyperlipidemia 10543884 E78.5 11/02/23:d id not complete labs 06/15/23:re- check cholestero l started ator 40- 12/2022tota l 286LDL 200 Overweight 637216944 E66 .3 did not complete labs Iron defic iency anemia 71052714 D50.9 11/02/23:n o longer taking irondid not complete labs 06/15/23:iro n studies 05/2023 normalre-c heck CBC and ferritin- pt will go to lab sandhya Disorder o f vitamin B12 341608870 E53.8 re-check Vitamin D deficiency 347 04207 E55.9 re-check today Vit D 19advised to start daily supplement 4110-0548 IUs Electronic cigarette user 373072155 Z72.89 vaping 3% nicotineha s no intention of weaning off Screening for malignant neoplasm of breast 893538166 Z12.39 has not completed this yearprinte d off order and encouraged pt to call to schedule appt Sore throat 055086300 J0 2.9 x1 ezequiel/w rhinorrhea took cough drops and drank warm teano other sxPEx- nlc/w OTC treatmentt rial allergy med for rhinorrhea [id number] LEROY CORDOVA [facility] [address] [place] [address] 03/15/2024 13:43:39 03/15/2024 14:08:51 Screening for malignant neoplasm of colon 452556390 Z12.11 03/15/24: needs new GI referral 11/02/23:G I referral 06/15/23:pt wants to wait until winter months to have colonoscop ycolin put reminder in chart for f/u in 5 months 10/12/22:m aternal grandfathe r with colon cancer, age [age]paren ts had precancero us polypsh/o hemorrhoid ectomyrec' d colonoscop y instead of cologuard due to FHpt not amendable at this timecolin discuss at 6 mo f/u Overweight 016004232 E66 .3 due for labsBMI 27.4discus sed increasing exercise and healthier food options, high protein, low fat diet Iron defic iency anemia 03941728 D50.9 03/15/24: check iron labs 11/02/23:n o longer taking irondid not complete labs 06/15/23:iro n studies 05/2023 normalre-c heck CBC and ferritin- pt will go to lab sandhya Disorder o f vitamin B12 035498835 E53.8 re-check Vitamin D deficiency 347 51426 E55.9 re-check today Vit D 19advised to start daily supplement 2259-2665 IUs Screening for malignant neoplasm of breast 272094866 Z12.39 03/15/24: encouraged pt to schedule appt 10/2023:perla s not completed this yearprinte d off order and encouraged pt to call to schedule appt Essential hypertension 07787567 I10 03/15/24: BP 150/89has not taken her BP medication yet today 06/15/23:BP 108/50refi ll 10/12/22:d id not take today BP medication todayBP 142/82refi ll 04/07/22:BP 104/64refi lls Rosacea 552342938 L71.9 c/o flares to L cheekreque sting metrojel and derm referral Major depr essive disorder 457057102 F32.9 03/15/24: PHQ 13feels okay on prozac 80feeling depressed and overwhelme dadd buproprion 150 mg, advised of ADRf/u in 1 mo 06/15/23:PHQ 3refill 10/12/22:P HQ 4refill prozacdoin g well on max dose 04/06/22:PH Q 3tried effexor in the pasthas been on anti-depre ssants since she was a teenager, zoloft, paxil, effexorref ill prozac Vaping 506671757 Z77.29 3%quit cigs 15 yrs ago and has been vaping sinceno interested in NRT at this time Health Concerns Section Related Observation LastModified by Organization Detai ls LastModified Time None Recorded Concern Status LastModified by Organization Details LastModified Time None Recorded Advance Directives Directive N: Payers Encounter Date Sequence Insurance Name Policy Number Policy Gaitan Covered Member ID Gaitan Member ID Guarantor Name 02/07/2023 1 [place] [id number] Omega Babin [id number] Diamond Babin 05/26/2023 1 [place] [id number] Omega Babin [id number] Diamond Wesleyttle 06/15/2023 1 [place] [id number] Omega Babin [id number] Diamond Wesleyttle 11/02/2023 1 [place] [id number] Omega Babin [id number] Diamond Wesleyttle 03/15/2024 1 [place] [id number] Omega Babin [id number] Diamond Babin Notes Date Note Type Note Provider Name and Address Organization Details Recorded Time 06/15/2023 text/html Pt presents for med refills. No concerns or complaints today. Denies fever, chills, chest pain, SOB, n/v/d, abd pain, dizziness, weakness, or headaches. LEROY CORDOVA Attn: Accounting,[address] [place], [address], [facility] 06/17/2023 12:41:44 11/02/2023 text/html Pt presents for med refills and sore throat x1 day. States that she developed sore throat and rhinorrhea yesterday. She has been drinking hot tea and took cough drops. No other symptoms. Pt did not complete labs or mammogram from prior visit. Requesting refills of hydroxyzine, increased stress at home taking care of her mom who was diagnosed with bone cancer. LEROY CORDOVA Attn: Accounting[address] [place], [address], [facility] 11/02/2023 15:48:14 03/15/2024 text/html Pt presents for med refills and blood work. Reports that she did not complete blood work or mammogram that was ordered at her last visit. States that she quit work for 6 months to take care of her mom that had bone cancer. She a couple months ago. Pt endorses that she has days of feeling really sad and overwhelmed. Denies fever, chills, chest pain, SOB, n/v/d, abd pain, dizziness, weakness, or headaches. LEROY CORDOVA Attn: Accounting[address] [facility], [place], [address], [facility] 03/15/2024 16:52:44 OBGyn Episode No OBEpisode recorded.
--- OUTSIDE RECORDS SUMMARY | 2024-12-13 01:46 | XMS_ITS | Patient Health Summary ---
Author Organization [facility] [employer] Address [address] [place] [address] Care Team Providers Care Sales Operations Associate Name Role Phone Jorge Parks MD Primary Care Provider [phone]- [phone] Note from [facility],non-owned Affiliates and Associated Physician Practices is amultiple site organization consisting of ambulatory clinics and hospital sitesin [place], [place], [place] and [place]. This disclosure is being madepursuant to the Care Everywhere program and may not contain all information available regarding this patient. Last updated 18.[facility] [employer] Allergies No known active allergies Medications * Be aware that medications may not be up to date on this document. Alwaysverify current medications with the patient. * FLUoxetine HCl (PROZAC PO) * ATENOLOL PO Social History Tobacco Use Types Packs/Day Years Used Date Smoking Tobacco: Former Smokeless Tobacco: Never Comments:vapes Sex and Gender Information Value Date Recorded Sex Assigned at Not on file Gender Identity Not on file Sexual Orientation Not on file Last Filed Vital Signs Vital Sign Reading Time Taken Comments Blood Pressure 108/70 11/15/2017 5:02 PM LOSS PREVENTION AGENT Pulse 67 11/15/2017 5:02 PM LOSS PREVENTION AGENT Temperature 36.7 ??C (98.1 ??F) 11/15/2017 5:02 PM CS T Respiratory Rate 16 11/15/2017 5:02 PM LOSS PREVENTION AGENT Oxygen Saturation 98% 11/15/2017 5:02 PM LOSS PREVENTION AGENT Inhaled Oxygen Concentration - - Weight 68 kg (150 lb) 11/15/2017 5:02 PM LOSS PREVENTION AGENT Height 157.5 cm (5' 2 ) 11/15/2017 5:02 PM LOSS PREVENTION AGENT Body Mass Index 27.44 11/15/2017 5:02 PM LOSS PREVENTION AGENT Procedures * STREP A SCREEN - POINT OF CARE (AMB) STL(Performed 11/15/2017) Performed for Strep throat Results * (ABNORMAL) STREP A SCREEN - POINT OF CARE (AMB) STL (11/15/2017) Strep A Rapid POCT Positive(A) Negative Strep A Internal Control Present Lot # [id number] Expiration Date 05/09/2019 Throat ENTIRE THROAT (SURFACE REGION OF NECK) / Unknown 11/15/2017 Roslyn Ojeda APRN-BAR EXAMINER LAB - POINT OF CARE ORDERABLES Care Teams Sales Operations Associate Relationship Specialty Start Date End Date Jorge Parks MD [address] [place] [address] PCP - General Gastroenterology 11/15/17
--- OUTSIDE RECORDS SUMMARY | 2024-12-13 01:46 | XMS_ITS | Referral Summary ---
Author Organization [facility] [address] [place] [address] Address [address] [place] [address] Care Team Providers Care Tuber Operator Name Role Phone Unknown, Notinfile Primary Care Provider Unavail able Allergies Active Allergy Reactions Criticality Noted Date Comments Metronidazole Nausea And Vomiting High 02/28/2020 Medications aspirin 81 mg enteric coated tablet Take 1 tablet (81 mg total) by mouth daily Active atenoloL-chlort halidone (TENORETIC) 50-25 mg per tablet Take 1 tablet by mouth 2 (two) times a day Active atorvastatin (LIPITOR) 40 mg tablet Take 1 tablet (40 mg total) by mouth nightly 4 Active buPROPion XL (WELLBUTRIN XL) 150 mg 24 hr tablet TAKE 1 TABLET BY MOUTH EVERY DAY IN THE MORNING FOR DEPRESSION 4 Active cyanocobalamin (Vitamin B-12) 1,000 mcg tablet TAKE 1 TABLET BY MOUTH EVERY DAY BEFORE A MEAL 4 Active diazePAM (VALIUM) 2 mg tablet Take 1 tablet (2 mg total) by mouth every 6 (six) hours as needed Active FLUoxetine (PROzac) 40 mg capsule TAKE 2 CAPSULES BY MOUTH ONCE A DAY DIRECTED FOR 90 DAYS, FOR DEPRESSION. 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 Social History Tobacco Use Types Packs/Day Years Used Date Smoking Tobacco: Never Assessed Personal Safety Answer Date Recorded Getting School Help Needed Not on file 08/06 Comments Unknown Sex and Gender Information Value Date Recorded Sex Assigned at Not on file Legal Sex Female 12:33 PM CDT Gender Identity Not on file Sexual Orientation Not on file Last Filed Vital Signs Vital Sign Reading Time Taken Comments Blood Pressure 130/76 08/06/2024 12:55 PM CDT Pulse 63 08/06/2024 12:55 PM CDT Temperature 36.8 ??C (98.3 ??F) 08/06/2024 12:55 PM C DT Respiratory Rate 18 08/06/2024 12:55 PM CDT Oxygen Saturation 99% 08/06/2024 12:55 PM CDT Inhaled Oxygen Concentration - - Weight 68 kg (150 lb) 08/06/2024 12:55 PM CDT Height 157.5 cm (5' 2 ) 08/06/2024 12:55 PM CDT Body Mass Index 27.44 08/06/2024 12:55 PM CDT Plan of Treatment Not on file Insurance [employer] O[employer] Care Teams Tuber Operator Relationship Specialty Start Date End Date Unknown, Notinfile PCP - General 08/06/24
--- OUTSIDE RECORDS SUMMARY | 2024-12-13 01:46 | XMS_ITS | Referral Summary ---
Author Organization [facility] [employer] Address [address] [place] [address] Care Team Providers Care Wet And Dry Sugar Bin Operator Name Role Phone Jorge Parks MD Primary Care Provider [phone]- [phone] Source Comments [facility] [employer],non-owned Affiliates and Associated Physician Practices is amultiple site organization consisting of ambulatory clinics and hospital sitesin [place], [place] and [place]. This disclosure is being madepursuant to the Care Everywhere program and may not contain all information available regarding this patient. Last updated 18.[employer] Allergies No known active allergies Medications * Be aware that medications may not be up to date on this document. Alwaysverify current medications with the patient. Medication Sig Dispensed Refills Start Date End Date Status FLUoxetine HCl (PROZAC PO) Active ATENOLOL PO Active Social History Tobacco Use Types Packs/Day Years Used Date Smoking Tobacco: Former Smokeless Tobacco: Never Comments:vapes Sex and Gender Information Value Date Recorded Sex Assigned at Not on file Gender Identity Not on file Sexual Orientation Not on file Last Filed Vital Signs Vital Sign Reading Time Taken Comments Blood Pressure 108/70 11/15/2017 5:02 PM RESIDENT CARE AID Pulse 67 11/15/2017 5:02 PM RESIDENT CARE AID Temperature 36.7 ??C (98.1 ??F) 11/15/2017 5:02 PM CS T Respiratory Rate 16 11/15/2017 5:02 PM RESIDENT CARE AID Oxygen Saturation 98% 11/15/2017 5:02 PM RESIDENT CARE AID Inhaled Oxygen Concentration - - Weight 68 kg (150 lb) 11/15/2017 5:02 PM RESIDENT CARE AID Height 157.5 cm (5' 2 ) 11/15/2017 5:02 PM RESIDENT CARE AID Body Mass Index 27.44 11/15/2017 5:02 PM RESIDENT CARE AID Plan of Treatment Not on file Care Teams Wet And Dry Sugar Bin Operator Relationship Specialty Start Date End Date Jorge Parks MD [facility] [address] PCP - General Gastroenterology 11/15/17
--- OUTSIDE RECORDS SUMMARY | 2024-12-13 01:46 | XMS_ITS | Clinical Summary ---
Author Organization [facility] [address] [place] [address] Address [facility] [place] [address] Care Team Providers Care Handyman Name Role Phone Unknown, Notinfile Primary Care [...] 08/06/2024 12:55 PM CDT Plan of Treatment Health Maintenance Due Date Last Done Comments Cervical Cancer Screening 1977 Colon Cancer Screening-Colonoscopy 1977 Depression Screening 1977 Hepatitis C Screening 1977 DTaP/Tdap/Td Vaccine (1 - Tdap) 1988 Hepatitis B Screening 1995 Regular Well Visit/Exam 18-64 1995 Breast Cancer Screening-Mammogram 10/21/2022 10/21/2021 Covid-19 Vaccine ( season) 2024 07/23/2022, 02/17/2021, 01/31/2021, Additional history exists Influenza Vaccine (#1) 2024 , 07/24/2021, 09/09/2018, Additional history exists Pneumococcal vaccine <65 Aged Out No longer eligible based on patient's age to complete this topic Insurance [employer] OOS Care Teams Handyman Relationship Specialty Start Date End Date Unknown, Notinfile PCP - General 08/06/24
--- OUTSIDE RECORDS SUMMARY | 2024-12-13 01:46 | XMS_ITS | Clinical Summary ---
Author Organization [facility] [employer] Address [address] [place] [address] Care Team Providers Care Clerk Funeral Detail Name Role Phone Jorge Parks MD Primary Care Provider +1- [phone] Source Comments [facility] [employer],non-owned Affiliates and Associated Physician Practices is amultiple site organization consisting of ambulatory clinics and hospital sitesin [place], [place], [place] and [place]. This disclosure is being madepursuant to the Care Everywhere program and may not contain all information available regarding this patient. Last updated 18.[employer] Allergies No known active allergies Medications * [...] Comments Blood Pressure 108/70 11/15/2017 5:02 PM ANALYTICS LEAD Pulse 67 11/15/2017 5:02 PM ANALYTICS LEAD Temperature 36.7 ??C (98.1 ??F) 11/15/2017 5:02 PM CS T Respiratory Rate 16 11/15/2017 5:02 PM ANALYTICS LEAD Oxygen Saturation 98% 11/15/2017 5:02 PM ANALYTICS LEAD Inhaled Oxygen Concentration - - Weight 68 kg (150 lb) 11/15/2017 5:02 PM ANALYTICS LEAD Height 157.5 cm (5' 2 ) 11/15/2017 5:02 PM ANALYTICS LEAD Body Mass Index 27.44 11/15/2017 5:02 PM ANALYTICS LEAD Plan of Treatment Health Maintenance Due Date Last Done Comments COLOGUARD (AGES 45-75) - COL ON CA SCREENING 1977 COLON MONITORING 1977 COLONOSCOPY - COLON CA SCREENING 1977 CT COLONOGRAPHY - COLON CA SCREENING 1977 Colorectal Cancer Screening 1977 FIT - COLON CA SCREENING 1977 FLEX SIG - COLON CA SCREENING 1977 LIPID TESTING 1977 MAMMOGRAM 1977 PAP SMEAR 1977 HIV SCREENING 1992 HEPATITIS C SCREENING 10/05/1995 DTAP/TDAP/TD VACCINES (1 - Tdap) 1996 HEPATITIS B VACCINE (1 of 3 - 19+ 3-dose series) 1996 SCREENING FOR DIABETES 11/15/2017 COVID-19 VACCINE (1 - 2023-2 5 season) 2024 INFLUENZA VACCINE (#1) 2024 DEPRESSION SCREENING 11/14/2024 ZOSTER VACCINE (1 of 2) 2027 HIB VACCINE Aged Out No longer eligi ble based on patient's age to complete this topic HPV VACCINE Aged Out No longer eligi ble based on patient's age to complete this topic MENINGOCOCCAL (Group B) VACCINE Aged Out No longer eligible based on patient's age to complete this topic MENINGOCOCCAL VACCINE Aged Out No joseph bakari eligible based on patient's age to complete this topic PNEUMOCOCCAL VACCINE Aged Out No long er eligible based on patient's age to complete this topic Care Teams Clerk Funeral Detail Relationship Specialty Start Date End Date Jorge Parks MD [address] [place] [address] PCP - General Gastroenterology 11/15/17
[2024-12-13 09:26] VITALS: BP 126/76; PULSE 77; RESP 16; TEMP 36.4; O2SAT 100
--- NOTE | 2024-12-13 09:29 | PM.IMHP ---
H&P: HPI History of Present Illness Date/Time: 12/13/24 09:29 Chief Complaint: family history of colorectal cancer. Narrative: this patient's grandfather from the maternal side had colorectal cancer, and both her parents have had pre canceours colon polyps. Her mother had it when she was in her 40s. The patient is asymptomatic from a GI standpoint and is here for her first colonoscopy. Review of Systems Review of Systems: All systems reviewed & are unremarkable except as noted in HPI and below PMFSH Past Medical History Medical History Depression High cholesterol History of hemorrhoids Hypertension Low blood potassium Low iron Family History Family History Mother Heart disease Hypertension Breast cancer Father Heart disease Hypertension Breast cancer Grandparent Colon cancer Social History Social History Smoking packs per day: 1 Smoking cigarettes per day: 20.0 Years smoked: 10 Smoking pack-years: 10.00 Smoking status: Former smoker Tobacco type: cigarettes and e-cigarettes/vaping Alcohol intake: current Drinks per week: 28 Alcohol use details: 3-4 nightly Substance use: current Substance use type: marijuana Living arrangements: with family Occupation/Education: unemployed Spiritual care concerns: No Meds Home Medications and Allergies Home Medications ?Medication ?Instructions ?Recorded ?Confirmed ?Type Adult Low Dose Aspirin 81 tab-cap PO DAILY 05/14/24 12/13/24 History atenolol 50 mg-chlorthalidone 25 1 tablet PO DAILY 05/14/24 12/13/24 History mg tablet atorvastatin 40 mg tablet 40 mg PO DAILY 05/14/24 12/13/24 History cyanocobalamin (vitamin B-12) 1,000 mcg PO DIRECTED 05/14/24 12/13/24 History 1,000 mcg tablet fluoxetine 40 mg capsule 40 mg PO DAILY 05/14/24 12/13/24 History omeprazole magnesium 20 mg 20 mg PO DAILY 12/04/24 12/13/24 History tablet,delayed release (Prilosec OTC) Allergies Allergy/AdvReac Type Severity Reaction Status Date / Time metronidazole (From Flagyl) AdvReac Intermediate Nausea Verified 12/13/24 09:21 Vital Signs Vital Signs - 24 hr 12/13/24 09:26 Temperature 97.6 F Pulse Rate 77 Respiratory Rate 16 Blood Pressure 126/76 Pulse Oximetry 100 Oxygen Delivery Room Air Exam Const: General: cooperative and healthy appearing Resp: Effort & Inspection: normal respiratory effort and able to speak in complete sentences Auscultation: clear to auscultation bilaterally Cardio: Rate: regular rate Rhythm: regular rhythm GI: Inspection: normal to inspection GI Palp: No No hepatosplenomegaly present Auscultation: normal bowel sounds Rectal Exam: deferred Skin: General skin exam: normal color Psych: Appearance: grossly normal Mental Status: mental status grossly normal Assessment and Plan Assessment and plan (1) Family history of colon cancer: Code(s): Z80.0 - Family history of malignant neoplasm of digestive organs Status: Acute Assessment and Plan: The patient is deemed a good candidate for the procedure. Consent signed. Will proceed.
[2024-12-13 09:32] LABS: BEDSIDEPREGUCG Negative (Negative)
[2024-12-13] MEDS: LACTATED RINGERS 1,000 ML 150 ML IV CONT (09:36)
--- NOTE | 2024-12-13 09:36 | WPDANESEPPF ---
Anes - Initial Pre Proc Eval Procedure: Operation Date: 12/13/24 10:30 Proposed Procedures p Screening Colonoscopy - Erick Francisco MD Date/Time: 12/13/24 09:36 Surgeon: Erick Francisco MD Pre Op Diagnosis: Screening colon Patient Data Age: 49 Gender: F Height: 1.57 m Weight: 67 kg Last Vital Signs Temp 36.4 C 12/13/24 09:26 Pulse 77 12/13/24 09:26 Resp 16 12/13/24 09:26 BP 126/76 12/13/24 09:26 Pulse Ox 100 12/13/24 09:26 O2 Del Method Room Air 12/13/24 09:26 Allergies Allergy/AdvReac Type Severity Reaction Status Date / Time metronidazole (From Flagyl) AdvReac Intermediate Nausea Verified 12/13/24 09:21 Home Medications ?Medication ?Instructions ?Recorded ?Confirmed ?Type Adult Low Dose Aspirin 81 tab-cap PO DAILY 05/14/24 12/13/24 History atenolol 50 mg-chlorthalidone 25 1 tablet PO DAILY 05/14/24 12/13/24 History mg tablet atorvastatin 40 mg tablet 40 mg PO DAILY 05/14/24 12/13/24 History cyanocobalamin (vitamin B-12) 1,000 mcg PO DIRECTED 05/14/24 12/13/24 History 1,000 mcg tablet fluoxetine 40 mg capsule 40 mg PO DAILY 05/14/24 12/13/24 History omeprazole magnesium 20 mg 20 mg PO DAILY 12/04/24 12/13/24 History tablet,delayed release (Prilosec OTC) Laboratory Tests 12/13/24 09:30 POC Urine HCG, Qual Negative (Negative) Patient hx anesthesia problems: none Family hx anesthesia problems: none Results Review: All pre-operative results and documents have been reviewed as part of the pre-operative evaluation. [facility] Past Medical History Medical History Depression High cholesterol History of hemorrhoids Hypertension Low blood potassium Low iron Family History Family History Mother Heart disease Hypertension Breast cancer Father Heart disease Hypertension Breast cancer Grandparent Colon cancer Social History Social History Smoking packs per day: 1 Smoking cigarettes per day: 20.0 Years smoked: 10 Smoking pack-years: 10.00 Smoking status: Former smoker Tobacco type: cigarettes and e-cigarettes/vaping Alcohol intake: current Drinks per week: 28 Alcohol use details: 3-4 nightly Substance use: current Substance use type: marijuana Living arrangements: with family Occupation/Education: unemployed Spiritual care concerns: No Anes - Eval Final PreProcedure Day of Procedure 12/13/24 09:36 Patient weight: overweight Heart: regular rate and rhythm Lungs: clear to auscultation Airway: Mallampati scale class II Neurological: alert and oriented Last oral intake: >/= 8 hours ASA classification: III Emergent: no Anesthetic plan: proceed Anesthesia type and monitoring: general GIVS and standard monitoring Results Review: All pre-operative results and documents have been reviewed as part of the pre-operative evaluation. Informed Consent: The patient's anesthetic plan and its attendant risks and benefits were discussed with the patient/family/POA. Questions were solicited and answers provided to the satisfaction of the patient/family/POA.
[2024-12-13 10:19] VITALS: BP 112/68; PULSE 77; RESP 17; O2SAT 96
[2024-12-13 10:29] VITALS: BP 116/70; PULSE 73; RESP 16; O2SAT 99
[2024-12-13 10:39] VITALS: BP 117/49; PULSE 77; RESP 18; O2SAT 99
== END 2024-12-13 10:53 | disposition home or self-care (01) ==
PROVIDERS: Anesthesiology; Visit Provider Internal Medicine Gastroenterology
PROC: 0DJD8ZZ Inspection of Lower Intestinal Tract, Via Natural or Artificial Opening Endoscopic (ICD-10-PCS; CPT 45378; principal; 2024-12-13 10:30)
DX: Z12.11 Encounter for screening for malignant neoplasm of colon (principal); K62.1 Rectal polyp; I10 Essential (primary) hypertension; E78.00 Pure hypercholesterolemia, unspecified; E87.6 Hypokalemia; E61.1 Iron deficiency; F32.A Depression, unspecified; F12.90 Cannabis use, unspecified, uncomplicated; Z87.891 Personal history of nicotine dependence; Z80.0 Family history of malignant neoplasm of digestive organs; Z80.3 Family history of malignant neoplasm of breast; Z82.49 Family history of ischemic heart disease and other diseases of the circulatory system
CPT/HCPCS: 45385; 88305; J2003; J2704; J7120

== ENCOUNTER 2025-05-23 13:40 | Outpatient (CLI) | payer BC, SELFPAY ==
--- NOTE | ~2025-05-23 | XR_ITS ---
EXAM/ PROCEDURE: XR lumbar spine 2-3V - 05/23/2025 13:49 CDT HISTORY: 49 years old Female with rt sided back pain COMPARISON: None available TECHNIQUE: Two view(s) FINDINGS/ IMPRESSION: There are no fractures or dislocations.Multilevel degenerative changes are seen. Intervertebral disc space narrowing at L4-5 and L5-S1. Atherosclerotic ulcerations are seen. Reviewed, dictated and finalized at location A.
--- OUTSIDE RECORDS SUMMARY | 2025-05-23 13:44 | XMS_ITS | Continuity of Care Document ---
Author Organization [facility] Address [address] [place] [address] [address] [place] [address] Phone Care Team Providers Care Route Manager Name Role Phone Malone OD, Sahil Unavailable Unavailable Procedures Procedure Date Eye Exam & Treatment Refraction Advance Directives Directive Yes / No Effective Date File Name No Information Encounters Encounter Description Practice Location Reason(s) For Visit Diagnoses Date Provider Providers Copied on Encounter [facility], [address] [place] [address] [address], [place], [place], [id number], [place] tel:[phone] [facility] [place] No Information [phone] Malone OD Sahil. [address] [facility] [place] , [address], [place], [address], [place]. tel:[phone] Family History Family Member Type Diagnosis Age At Onset No Information Payers Payer name Insurance type Covered republican ID Authoriza tion(s) No Information Social History Type Description Quantity Date Captured Comments Sex Female Smoking Status No Information Chief Complaint And Reason For Visit No Information Reason For Referral Reason For Referral No Information History Of Present Illness Encounter Date Complaint History Of Prese nt Illness No Information Functional Status Date Functional Assessmen t No Information Instructions Date Instruction Additional Infor mation No Information Assessments Type Assessment Date No Information Patient Care Teams Name Effective Dates (start - stop) Status Members No Information
== END 2025-05-23 13:41 | disposition home or self-care (01) ==
PROVIDERS: PCP Physician Assistant; Visit Provider Physician Assistant
DX: M54.41 Lumbago with sciatica, right side (principal); M51.369 Other intervertebral disc degeneration, lumbar region without mention of lumbar back pain or lower extremity pain; M51.379 Other intervertebral disc degeneration, lumbosacral region without mention of lumbar back pain or lower extremity pain
CPT/HCPCS: 72100

== ENCOUNTER 2025-07-02 14:26 | Outpatient (CLI) | payer BC, SELFPAY ==
--- NOTE | ~2025-07-02 | MM_ITS ---
EXAMINATION: MM screening tessie BI w juanis HISTORY: Screening mammogram, family history of breast cancer in her mother. TECHNIQUE: Craniocaudal and mediolateral oblique 3-D tomosynthesis images were obtained and synthetic 2-D images were generated. CAD analysis was submitted and interpreted. COMPARISON: 10/21/2021 BREAST PARENCHYMAL COMPOSITION:Not Dense. There are scattered areas of fibroglandular density. FINDINGS: No suspicious mass, calcification, or architectural distortion are identified in either breast to suggest malignancy. There has been no suspicious interval change. IMPRESSION: No mammographic evidence of malignancy. Recommend routine screening mammography in one year. BI-RADS Category 1: Negative Reviewed, dictated and finalized at location .
--- OUTSIDE RECORDS SUMMARY | 2025-07-02 14:49 | XMS_ITS | Clinical Summary ---
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 Active omeprazole (PriLOSEC) 10 mg Capsule, Delayed Release(E.C.) Take 10 mg by mouth daily. Active diazePAM (VALIUM) 2 mg tablet Take 2 mg by mouth every 6 hours as needed for Anxiety. Active aspirin (ECOTRIN EC) 81 mg Tablet, Delayed Release (E.C.) Take 81 mg by mouth daily. Active atenoloL-chlorth alidone (TENORETIC) 50-25 mg tablet Take 1 Tablet by mouth daily. 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 Family History Medical History Relation Name Comments Cancer Father Heart Disease Father Heart Disease Mother Relation Name Status Comments Brother Alive Father Mother Alive Social History Tobacco Use Types Packs/Day Years Used Date Smoking Tobacco: Former Cigarettes 1 17 0 02/28/1996 - 02/27/2013 Smokeless Tobacco: Never Alcohol Use Standard Drinks/Week Comments Yes 28 (1 standard drink = 0.6 oz pu re alcohol) Comments No Sex and Gender Information Value Date Recorded Sex Assigned at Not on file Legal Sex Female 10:00 AM CDT Gender Identity Not on file Sexual Orientation Not on file Last Filed Vital Signs Vital Sign Reading Time Taken Comments Blood Pressure 122/85 06/26/2020 2:34 PM CDT Pulse 79 06/26/2020 2:34 PM CDT Temperature 37 C (98.6 F) 06/26/2020 2:34 PM CDT Respiratory Rate 20 05/29/2020 5:15 PM CDT Oxygen Saturation 98% 06/26/2020 2:34 PM CDT Inhaled Oxygen Concentration - - Weight 61.8 kg (136 lb 3.2 oz) 06/26/2020 2:34 P M CDT Height 157.5 cm (5' 2) 06/26/2020 2:34 PM CDT Body Mass Index 24.91 06/26/2020 2:34 PM CDT Plan of Treatment Health Maintenance Due Date Last Done Comments DTAP/TDAP/TD VACCINES (1 - Tdap) 1996 HEPATITIS B VACCINES (1 of 3 - 19+ 3-dose series) 09/15 HPV/Cotest (21-29) 1998 CERVICAL CANCER SCREENING 2007 HPV/Cotest (30-65) 2007 PAP SMEAR 2007 BREAST CANCER SCREENING 2017 COLORECTAL SCREENING 2022 Colorectal Cancer Screening 2022 FIT-DNA Q 3 years 2022 FIT/FOBT Q 1 year 2022 Flex Sig/CT Colonography Q 5 years 2022 INFLUENZA VACCINE (#1) 2025 Medical Devices Implanted Type Area Interior Decorator Device Identifier Shelf Expiration Date Model / Serial / Lot Hemostatic Surgifoam [id number] - [id number] Implanted:Qty : 1 on 05/29/2020 by Alissa Lin MD at [facility] Hemostatic N/A: [employer]ianal [employer] 01/15/[id number] / [id number] Insurance BCBS BLUE ACCESS/TRUE BLUE PPO RX [employer] Advance Directives For more information, please contact: [phone] * Full Code (Latest Code Status on File) Date Activated Date Inactivated Comments 05/29/2020 1:35 PM 05/29/2020 8:57 PM * Full Code Date Activated Date Inactivated Comments 05/29/2020 11:03 AM 05/29/2020 1:35 PM Care Teams Fastener Sewing Machine Operator Relationship Specialty Start Date End Date Zeny Jesus MD PCP - General Family Practice 01/24/20
== END 2025-07-02 14:27 | disposition home or self-care (01) ==
PROVIDERS: PCP Physician Assistant; Visit Provider Physician Assistant
DX: Z12.31 Encounter for screening mammogram for malignant neoplasm of breast (principal); Z80.3 Family history of malignant neoplasm of breast
CPT/HCPCS: 77063; 77067